=== PATIENT | male | born 1970 | race Caucasian/White ===

== ENCOUNTER 2020-02-01 15:10 | Outpatient (REF) | payer OTHER, SELFPAY | END 2020-02-01 15:11 | disposition home or self-care (01) | LOC: HO.LAB 15:10 | PROVIDERS: PCP Internal Medicine; Visit Provider Internal Medicine | DX: Z20.828 Contact with and (suspected) exposure to other viral communicable diseases (principal) | CPT/HCPCS: C9803; U0003 ==

== ENCOUNTER 2021-12-12 11:41 | Outpatient (REF) | payer SELFPAY ==
[2021-12-12 11:44] LABS: MANUAL DIFF FLAG NO
[2021-12-12 12:07] LABS: Basophils Absolute Auto 0.1 X10*3/uL (0.0-0.2); Basophils Percent Auto 0.8 % (0-2); Eosinophils Absolute Auto 0.4 X10*3/uL (0.0-0.4); Eosinophils Percent Auto 6.4 % (0-4); Hematocrit 51.2 % (42.0-52.0); Hemoglobin 16.4 g/dl (14.0-18.0); Imm Gran Abs Auto 0.02 X10*3/uL (0.00-0.03); Imm Gran Pct Auto 0.3 % (0.0-0.4); Lymphocytes Absolute Auto 2.1 X10*3/uL (1.2-4.9); Mean Corpuscular Hemoglobin 27.9 pg (27.0-33.0); Mean Corpuscular Volume 87.2 fL (80.0-98.0); Mean Platelet Volume 9.5 fL (9.4-12.4); Monocytes Absolute Auto 0.6 X10*3/uL (0.1-1.2); Monocytes Percent Auto 8.9 % (2-11); Neutrophils Absolute Auto 3.3 x10*3/uL (2.0-8.3); Neutrophils Percent Auto 51.6 % (45-73); Platelet Count 328 X10*3/uL (160-400); Red Blood Count 5.87 X10*6/uL (4.60-5.80); Red Cell Distribution Width 14.5 % (11.0-16.0); White Blood Count 6.4 X10*3/uL (4.8-10.8)
[2021-12-12 12:16] LABS: Appearance Urine Clear; Color Urine Yellow; Glucose Urine UA Negative (Negative); Leukocyte Esterase Urine Negative (Negative); Nitrite Urine Negative (Negative); PH 6.5 (5.0-9.0); Urine Blood Negative (Negative); Urine Ketones Negative (Negative); Urine Protein Negative (Neg-Trace)
[2021-12-12 12:19] LABS: Bacteria Urine None Seen (None Seen); Hyaline Casts Urine 0-2 /LPF (0-2); Squamous Epithelial Cell Urine 0-2 /HPF (0-2); WBC Urine 0-5 /HPF (0-5)
[2021-12-12 12:20] LABS: Alanine Aminotransferase 29 U/L (0-40); Albumin Level 4.3 g/dL (3.5-5.0); Alkaline Phosphatase 60 U/L (39-117); Anion Gap 15 (12-20); Aspartate Amino Transferase 19 U/L (5-37); Bilirubin Total 0.7 mg/dL (0.0-1.0); Blood Urea Nitrogen 19 mg/dL (9-16); Calcium 9.5 mg/dL (8.4-10.2); Carbon Dioxide 27 mmol/L (22-29); Chloride 104 mmol/L (96-108); Cholesterol 196 mg/dL; Estimated Glomerular Filt Rate > 60; Glucose Fasting 94 mg/dL (60-99); HDL Cholesterol 52 mg/dL; LDL Cholesterol Calculated 125 mg/dl; Potassium 4.5 mmol/L (3.3-5.1); Sodium 141 mmol/L (135-145); Total Protein 7.3 g/dL (6.5-8.0); Triglycerides 96 mg/dL
[2021-12-12 12:43] LABS: PSA,Total (Free>4and<10) 0.53 ng/mL (0.00-4.00)
== END 2021-12-12 11:42 | disposition home or self-care (01) ==
LOC: HO.LNP 11:41
PROVIDERS: Visit Provider Internal Medicine
DX: Z00.00 Encounter for general adult medical examination without abnormal findings (principal); I10 Essential (primary) hypertension; Z12.5 Encounter for screening for malignant neoplasm of prostate
CPT/HCPCS: 80053; 80061; 81001; 84153; 85025

== ENCOUNTER → 2022-02-09 13:25 | Outpatient (BNVA) | payer SELFPAY | PROVIDERS: PCP Internal Medicine; Visit Provider Physician Assistant Medical | DX: Z02.79 Encounter for issue of other medical certificate (principal) ==

== ENCOUNTER 2022-06-09 09:55 | Day surgery (SDC) | payer BC, SELFPAY ==
[2022-06-09 12:10] VITALS: BP 133/81; PULSE 81; RESP 16; TEMP 36.1; O2SAT 99; BMI 33.7
--- NOTE | 2022-06-09 13:22 | MHC.SHP ---
Pre-Procedural Eval Section A Date of Service: 06/09/22 The patient is an INPATIENT: No Changes since office visit: No Cold of Flu in the past 2 weeks, No New Medical Problems, No Changes in Medication and No Patient answered all questions The History & Physical has been completed within 30 days and I have reviewed it.: Yes Section B Chief Complaint: Personal history of colonic polyps/screening Allergies: Allergies Allergy/AdvReac Type Severity Reaction Status Date / Time opoids Allergy Severe nausea Uncoded 06/09/22 12:01 sulfa drugs Allergy Unknown Unknown Uncoded 06/09/22 12:01 Plan I have reviewed the history and physical and performed a pertinent physical examination on my patient. No changes have occurred unless specified. Time Spent With Patient Time: Total time managing care of this patient today ____ minutes.
[2022-06-09 14:05] VITALS: BP 89/36; PULSE 85; RESP 16; TEMP 36.2; O2SAT 98
--- NOTE | 2022-06-09 14:06 | PM.OP ---
Brief Operative Note Date of Service: 06/09/22 Pre-op diagnosis: screening Post-op diagnosis: same Procedure: colonoscopy Surgeon: Toño Morrison Anesthesia: MAC Was an Assistant Kitchen Manager used for this Procedure?: No Estimated blood loss (mL): 5 Pathology: other Condition: stable Disposition: PACU
--- NOTE | 2022-06-09 14:10 | HO.ANESPROP2 ---
[facility] Past Medical History Medical History (Updated 06/09/22 @ 12:24 by Юлия Avalos) Concussion with brief LOC Esophagitis GERD (gastroesophageal reflux disease) Hiatal hernia Hypertension Kidney stones Right bundle branch block S/P angiogram of extremity Schatzki's ring Family History Family history of problems with anesthesia: No Surgical History Surgical History (Updated 06/09/22 @ 12:09 by Юлия Avalos) H/O colonoscopy H/O endoscopy H/O knee surgery History of Problems with Anesthesia: No Social History Social History Patient Tobacco Use Status: Former Tobacco user Quit Date: 1997 Tobacco use type: Cigarette Smoked in Last 30 Days: No Use of substances other than those prescribed or required for medical reasons: No Are you DNR?: No Advance Directives: No Advance Directives Information Provided: Yes Meds Allergies Allergy/AdvReac Type Severity Reaction Status Date / Time opoids Allergy Severe nausea Uncoded 06/09/22 12:01 sulfa drugs Allergy Unknown Unknown Uncoded 06/09/22 12:01 Home Medications Medication Instructions Recorded Confirmed Last Taken Type omeprazole 1 cap PO DAILY 06/09/22 06/09/22 Unknown History valsartan 80 1 tab PO DAILY 06/09/22 06/09/22 06/07/22 History mg-hydrochlorothiazide 12.5 mg tablet Exam Exam Date and Time: June 09, 2022 1410 Height,Weight and Vital Signs: Height 6 ft Weight 112.763 kg Last Vital Signs Temp 97.0 F 06/09/22 12:10 Pulse 81 06/09/22 12:10 Resp 16 06/09/22 12:10 BP 133/81 06/09/22 12:10 Pulse Ox 99 06/09/22 12:10 O2 Del Method Room Air 06/09/22 12:10 Airway Mallampati Class: II TM Dist: >3cm Neck ROM: Full Heart: rr Lungs: cta Assessment and Plan Final Anesthetic Review Family History of Problems with Anesthesia: No History of Problems with Anesthesia: No NPO: Yes 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
[2022-06-09 14:21] VITALS: BP 116/71; PULSE 74; RESP 18; TEMP 36.1; O2SAT 98
--- NOTE | 2022-06-10 00:50 | OP_ITS ---
DATE OF SERVICE: 06/09/2022 SURGEON: Toño Morrison MD INDICATIONS: Colon cancer screening and prior history of adenomatous colon polyps as well as family history of colon cancer. PREOPERATIVE DIAGNOSIS: POSTOPERATIVE DIAGNOSIS: PROCEDURE PERFORMED: Colonoscopy to the cecum with biopsy. ESTIMATED BLOOD LOSS: COMPLICATIONS: ANESTHESIA: Monitored anesthesia care. ASSISTANTS: SPECIMENS: DESCRIPTION OF PROCEDURE: A history and physical were performed. The procedure was performed on 06/09/2022. The risks and benefits of the procedure were explained to the patient. Informed consent was obtained. The patient was placed in the left lateral decubitus position. A digital rectal exam was performed and was found to be normal. The Olympus pediatric video colonoscope was introduced into the rectum and advanced to the cecum without difficulty. The cecum was identified by transillumination, palpation, and identification of the ileocecal valve. Abdominal wall pressure was used to assist in advancement of the scope. Examination was performed. The scope was removed. He tolerated the procedure well and was returned to recovery area in stable condition. FINDINGS: The terminal ileum was not examined. The visualized colonic mucosa was normal. A total of 3 polyps were identified and removed with biopsy forceps. All measured less than 10 mm. These were located in the cecum at 60 cm and in the rectum. There was mild sigmoid diverticulosis. Retroflexed examination showed moderate-sized internal hemorrhoids. The quality of the prep was good. IMPRESSION: Colon polyps. RECOMMENDATION: Follow up the biopsy results. MD AILYN Iraheta/MARCELO / [phone]
== END 2022-06-09 14:51 | disposition home or self-care (01) ==
PROVIDERS: PCP Internal Medicine; Visit Provider Internal Medicine Gastroenterology
PROC: 0DJD8ZZ Inspection of Lower Intestinal Tract, Via Natural or Artificial Opening Endoscopic (ICD-10-PCS; CPT 45378; principal; 2022-06-09 12:40)
DX: Z12.11 Encounter for screening for malignant neoplasm of colon (principal); Z86.010 Personal history of colon polyps; Z80.0 Family history of malignant neoplasm of digestive organs; D12.0 Benign neoplasm of cecum; D12.4 Benign neoplasm of descending colon; K62.1 Rectal polyp; K57.30 Diverticulosis of large intestine without perforation or abscess without bleeding; K64.8 Other hemorrhoids; K21.9 Gastro-esophageal reflux disease without esophagitis; K22.2 Esophageal obstruction; I10 Essential (primary) hypertension; Z79.899 Other long term (current) drug therapy; Z87.442 Personal history of urinary calculi; Z87.891 Personal history of nicotine dependence
CPT/HCPCS: 45380; 88305

== ENCOUNTER 2022-12-24 11:13 | Outpatient (REF) | payer BC, SELFPAY ==
[2022-12-24 11:18] LABS: MANUAL DIFF FLAG NO
[2022-12-24 11:26] LABS: Appearance Urine Clear; Color Urine Yellow; Glucose Urine UA Negative (Negative); Leukocyte Esterase Urine Negative (Negative); Nitrite Urine Negative (Negative); PH 5.5 (5.0-9.0); Urine Blood Negative (Negative); Urine Ketones 15 mg/dL (Negative); Urine Protein Negative (Neg-Trace)
[2022-12-24 11:27] LABS: Basophils Percent Auto 0.9 % (0-2); Eosinophils Absolute Auto 0.3 X10*3/uL (0.0-0.4); Eosinophils Percent Auto 7.2 % (0-4); Hematocrit 47.1 % (42.0-52.0); Hemoglobin 15.5 g/dl (14.0-18.0); Imm Gran Abs Auto 0.01 X10*3/uL (0.00-0.03); Imm Gran Pct Auto 0.2 % (0.0-0.4); Lymphocytes Absolute Auto 1.7 X10*3/uL (1.2-4.9); Lymphocytes Percent Auto 36.5 % (20-40); Mean Corpuscular HGB Conc 32.9 g/dl (31.0-36.0); Mean Corpuscular Hemoglobin 28.5 pg (27.0-33.0); Mean Corpuscular Volume 86.7 fL (80.0-98.0); Mean Platelet Volume 9.7 fL (9.4-12.4); Monocytes Absolute Auto 0.4 X10*3/uL (0.1-1.2); Monocytes Percent Auto 9.4 % (2-11); Neutrophils Absolute Auto 2.1 x10*3/uL (2.0-8.3); Neutrophils Percent Auto 45.8 % (45-73); Platelet Count 338 X10*3/uL (160-400); Red Blood Count 5.43 X10*6/uL (4.60-5.80); Red Cell Distribution Width 13.9 % (11.0-16.0); White Blood Count 4.6 X10*3/uL (4.8-10.8)
[2022-12-24 11:31] LABS: Bacteria Urine None Seen (None Seen); Hyaline Casts Urine 0-2 /LPF (0-2); RBC Urine 0-2 /HPF (0-2); Squamous Epithelial Cell Urine 0-2 /HPF (0-2); WBC Urine 0-5 /HPF (0-5)
[2022-12-24 11:49] LABS: Alanine Aminotransferase 12 U/L (0-40); Albumin Level 4.1 g/dL (3.5-5.0); Alkaline Phosphatase 49 U/L (39-117); Anion Gap 13 (12-20); Aspartate Amino Transferase 16 U/L (5-37); Bilirubin Total 0.6 mg/dL (0.0-1.0); Blood Urea Nitrogen 13 mg/dL (9-16); Calcium 9.6 mg/dL (8.4-10.2); Carbon Dioxide 27 mmol/L (22-29); Chloride 102 mmol/L (96-108); Cholesterol 190 mg/dL (<200); Estimated Glomerular Filt Rate > 60; Glucose Fasting 88 mg/dL (60-99); HDL Cholesterol 50 mg/dL (>40); LDL Cholesterol Calculated 127 mg/dL (<100); Potassium 3.7 mmol/L (3.3-5.1); Sodium 138 mmol/L (135-145); Total Protein 7.2 g/dL (6.5-8.0); Triglycerides 65 mg/dL (<150)
[2022-12-24 12:07] LABS: PSA,Total (Free>4and<10) 0.67 ng/mL (0.00-4.00)
== END 2022-12-24 11:14 | disposition home or self-care (01) ==
LOC: HO.LNP 11:13
PROVIDERS: Visit Provider Internal Medicine
DX: Z00.00 Encounter for general adult medical examination without abnormal findings (principal); I10 Essential (primary) hypertension; Z12.5 Encounter for screening for malignant neoplasm of prostate
CPT/HCPCS: 80053; 80061; 81001; 84153; 85025

== ENCOUNTER 2024-01-03 11:23 | Outpatient (REF) | payer BC, SELFPAY ==
[2024-01-03 11:26] LABS: MANUAL DIFF FLAG NO
[2024-01-03 11:50] LABS: Appearance Urine Clear; Color Urine Yellow; Glucose Urine UA Negative (Negative); Leukocyte Esterase Urine Negative (Negative); Nitrite Urine Negative (Negative); Urine Blood Negative (Negative); Urine Ketones Negative (Negative); Urine Protein Negative (Neg-Trace)
[2024-01-03 11:51] LABS: Basophils Absolute Auto 0.1 X10*3/uL (0.0-0.2); Basophils Percent Auto 1.1 % (0-2); Eosinophils Absolute Auto 0.5 X10*3/uL (0.0-0.4); Eosinophils Percent Auto 8.1 % (0-4); Hematocrit 48.7 % (42.0-52.0); Hemoglobin 15.6 g/dl (14.0-18.0); Imm Gran Abs Auto 0.02 X10*3/uL (0.00-0.03); Imm Gran Pct Auto 0.3 % (0.0-0.4); Lymphocytes Absolute Auto 2.2 X10*3/uL (1.2-4.9); Lymphocytes Percent Auto 36.3 % (20-40); Mean Corpuscular Hemoglobin 28.2 pg (27.0-33.0); Mean Corpuscular Volume 87.9 fL (80.0-98.0); Mean Platelet Volume 9.7 fL (9.4-12.4); Monocytes Absolute Auto 0.5 X10*3/uL (0.1-1.2); Monocytes Percent Auto 8.6 % (2-11); Neutrophils Absolute Auto 2.8 x10*3/uL (2.0-8.3); Neutrophils Percent Auto 45.6 % (45-73); Platelet Count 329 X10*3/uL (160-400); Red Blood Count 5.54 X10*6/uL (4.60-5.80); Red Cell Distribution Width 14.1 % (11.0-16.0); White Blood Count 6.2 X10*3/uL (4.8-10.8)
[2024-01-03 11:55] LABS: Bacteria Urine None Seen (None Seen); Hyaline Casts Urine 0-2 /LPF (0-2); RBC Urine 0-2 /HPF (0-2); Squamous Epithelial Cell Urine 0-2 /HPF (0-2); WBC Urine 0-5 /HPF (0-5)
[2024-01-03 12:56] LABS: Alanine Aminotransferase 24 U/L (0-40); Albumin Level 4.1 g/dL (3.5-5.0); Alkaline Phosphatase 52 U/L (39-117); Anion Gap 12 (12-20); Aspartate Amino Transferase 21 U/L (5-37); Bilirubin Total 0.4 mg/dL (0.0-1.0); Blood Urea Nitrogen 13 mg/dL (9-16); Calcium 9.3 mg/dL (8.4-10.2); Carbon Dioxide 28 mmol/L (22-29); Chloride 107 mmol/L (96-108); Cholesterol 199 mg/dL (<200); Estimated Glomerular Filt Rate > 60; Glucose Fasting 91 mg/dL (60-99); HDL Cholesterol 64 mg/dL (>40); LDL Cholesterol Calculated 124 mg/dL (<100); Potassium 4.2 mmol/L (3.3-5.1); Sodium 143 mmol/L (135-145); Total Protein 7.1 g/dL (6.5-8.0); Triglycerides 59 mg/dL (<150)
== END 2024-01-03 11:24 | disposition home or self-care (01) ==
LOC: HO.LNP 11:23
PROVIDERS: Visit Provider Internal Medicine
DX: Z00.00 Encounter for general adult medical examination without abnormal findings (principal); I10 Essential (primary) hypertension
CPT/HCPCS: 80053; 80061; 81001; 85025

== ENCOUNTER 2024-01-10 12:05 | Outpatient (REF) | payer BC, SELFPAY ==
[2024-01-10 12:46] LABS: PSA,Total (Free>4and<10) 0.78 ng/mL (0.00-4.00)
== END 2024-01-10 12:06 | disposition home or self-care (01) ==
LOC: HO.LNP 12:05
PROVIDERS: Visit Provider Internal Medicine
DX: Z00.00 Encounter for general adult medical examination without abnormal findings (principal); I10 Essential (primary) hypertension; Z12.5 Encounter for screening for malignant neoplasm of prostate
CPT/HCPCS: 84153

== ENCOUNTER 2024-11-30 11:51 | Outpatient (REF) | payer BC, SELFPAY ==
[2024-11-30 11:56] LABS: Appearance Urine Clear; Glucose Urine UA Negative (Negative); PH 6.0 (5.0-9.0); Specific Gravity - Urine 1.025 (1.005-1.025); UMIC TRIGGER UACC YES
[2024-11-30 12:08] LABS: UACC Culture Trigger YES
--- OUTSIDE RECORDS SUMMARY | 2024-11-30 14:11 | XMS_ITS | Clinical Summary ---
Author Organization [facility] Address [address] [place] [address] Care Team Providers Care Outsole Molder Name Role Phone Unavailable Primary Care Provider Unavailabl e Social History Tobacco Use Types Packs/Day Years Used Date Smoking Tobacco: Never Assessed Sex and Gender Information Value Date Recorded Sex Assigned at Not on file Legal Sex Male 7:09 PM EDT Gender Identity Not on file Sexual Orientation Not on file Plan of Treatment Health Maintenance Due Date Last Done Comments Hepatitis C Screening 1970 DTaP/Tdap/Td (1 - Tdap) 06/07/1987 Hep B (1 of 3 - 19+ 3-dose series) 1988 Pneumococcal 50+ years (1 of 1 - PCV) 06/07/2019 Zoster (Shingrix) (1 of 2) 06/07/2019 COVID-19 Vaccine ( - 2023-2 5 season) 2024 Influenza (#1) 2024 HPV Vaccine (No Doses Required) Completed Hep A Aged Out No longer eligi ble based on patient's age to complete this topic Hib Aged Out No longer eligi ble based on patient's age to complete this topic Meningococcal ACWY Aged Out No longer eligible based on patient's age to complete this topic
--- OUTSIDE RECORDS SUMMARY | 2024-11-30 14:11 | XMS_ITS | Clinical Summary ---
Author Organization [facility] Address [address] [place] [phone] Phone Care Team Providers Care Drafter Castings Name Role Phone Juma Pryor MD Primary Care Provider Allergies Active Allergy Reactions Criticality Noted Date Comments Sulfa (Sulfonamide Antibiotics) Hives 03/16 Medications omeprazole magnesium (ACID FLAT SORTING MACHINE CLERK, OMEPRAZOLE,) 20 mg CpDR 08/13/2018 Active Social History Tobacco Use Types Packs/Day Years Used Date Smoking Tobacco: Never Assessed Education Answer Date Recorded Are you interested in more education? Not on rosio e 07/10/2022 Are you concerned about learning? Not on file 07/10/2022 No 07/10/2022 No 07/10/2022 Digital Access Answer Date Recorded No 08/08/2022 No 08/08/2022 No 08/08/2022 Reliable internet access at home? Not on file 08/08/2022 Device with a working camera? Not on file Sex and Gender Information Value Date Recorded Sex Assigned at Male 04/09/2019 3:35 PM EST Legal Sex Male 3:26 PM EST Gender Identity Male 04/09/2019 3:35 PM EST Sexual Orientation Straight 04/09/2019 3: 35 PM EST Last Filed Vital Signs Vital Sign Reading Time Taken Comments Blood Pressure 146/90 04/09/2019 4:01 PM EST Pulse 71 04/09/2019 4:01 PM EST Temperature 36.4 C (97.6 F) 04/09/2019 4:01 PM EST Respiratory Rate - - Oxygen Saturation 97% 04/09/2019 4:01 PM EST Inhaled Oxygen Concentration - - Weight 112 kg (247 lb) 04/09/2019 4:01 PM EST Height - - Body Mass Index - - Plan of Treatment Health Maintenance Due Date Last Done Comments Adult Td,Tdap Booster 1970 LIPID PANEL 1969 DEPRESSION SCREENING 1981 SMOKING Hx and SMOKELESS TOBACCO SCREENING 1982 HEPATITIS C SCREENING 06/07/1987 HIV ONE-TIME SCREENING (18-65 YEARS) 06/07/1987 COLOGUARD 2014 COLONOSCOPY 2014 COLORECTAL CANCER SCREENING 2014 FIT TEST 2014 FOBT 2014 SIGMOIDOSCOPY 2014 VIRTUAL COLONOSCOPY 2014 PNEUMOCOCCAL VACCINES (50+ years) (1 of 1 - PCV) 06/07/2019 ZOSTER VACCINES (1 of 2) 06/07/2019 INFLUENZA VACCINE (#1) 2024 9, 05/18/2017, 03/11/2016, Additional history exists COVID-19 VACCINE ( - 2024- season) 2024 06/23/2020 HEPATITIS A VACCINES Aged Out No long er eligible based on patient's age to complete this topic HIB VACCINES Aged Out No longer eligi ble based on patient's age to complete this topic MENINGOCOCCAL VACCINES (ACWY) Aged Out No longer eligible based on patient's age to complete this topic MENINGOCOCCAL VACCINES (B) Aged Out N o longer eligible based on patient's age to complete this topic Medical Devices Not on file Insurance [facility] EPO Leaf [facility] PPO EPO [facility] PPO EPO Leaf [facility] PPO EPO [facility] PPO EPO [place] [address] [place] [address] [address] [place] [address] PPO EPO [facility] PPO EPO Care Teams Drafter Castings Relationship Specialty Start Date End Date Juma Pryor MD [address] [place] [address] [place] [address] PCP - General Internal Medicine 04/09/19 Additional Source Comments The information contained in this document represents components of the legal health record. It is not the complete legal health record.[facility]
--- OUTSIDE RECORDS SUMMARY | 2024-11-30 14:11 | XMS_ITS ---
Author Name [facility] Organization Unknown Encounters Encounter Type Encounter Reason Primary Diagnosis Location Date Ambulatory [facility] 03/04/[address] [facility] 03/04/2024
== END 2024-11-30 11:52 | disposition home or self-care (01) ==
LOC: HO.LNP 11:51
PROVIDERS: Visit Provider Internal Medicine
DX: R35.89 Other polyuria (principal)
CPT/HCPCS: 81001; 87086

== ENCOUNTER 2025-01-09 07:12 | Outpatient (REF) | payer BC, SELFPAY ==
--- OUTSIDE RECORDS SUMMARY | 2024-11-23 11:39 | XMS_ITS ---
Author Organization Juma Pryor MD Address [address] [place] [phone] Care Team Providers Care Commanding Officer Traffic Division Name Role Phone Juma Pryor Primary Care Provider REASON FOR VISIT refill Medications Medication SIG (Take, Route, Fr equency, Duration) Notes Start Date End Date Status Gabapentin 300 MG 1 capsule Orally Thr ee times a day for 30 days Active Encounters Encounter Location Date Provider Diagnosis Juma Pryor MD [address] [facility] [address] [place] [phone] 11/23/2024 Juma Pryor Plan Of Treatment Medication Medication Name Sig Start Date Stop Date Notes Gabapentin 300 MG 1 capsule Orally Thr ee times a day for 30 days Next Appt Details Provider Name:Juma Betancur ier, 01/15/2025 09:30:00 AM, [facility], Suite [facility], [place], [place], [phone], Progress Notes * CANDE LOZANODOB: 0 (54 yo M)Acc No.[id number]:11/23/2024 Patient: Domenica CARRILLOCANDE HENDRICKSON :1970 A ge:54 Y S ex:Male Address: [address], [place], [address] * Refills Refill Gabapentin Capsule, 300 MG, Orally, 90 Capsule, 1 capsule, Three times a day, 30 days, Refills=1 * true * Date: Generated for Elgin brooks/Gaudencio/Nilton on: 07:16 AM EDT
--- OUTSIDE RECORDS SUMMARY | 2024-11-24 12:30 | XMS_ITS ---
Author Organization Juma Pryor MD Address [address] [place], [place] [phone] Care Team Providers Care Toddler Caregiver Name Role Phone Juma Pryor Primary Care Provider [phone] REASON FOR VISIT d/c 11-14-2024 for [facility] 4 broken ribs , was told d/c summary will be faxed Encounters Encounter Location Date Provider Diagnosis Juma Pryor MD 10 [facility] [address] [place], [place] [phone] 11/24/2024 Juma Pryor Plan Of Treatment Next Appt Details Provider Name:Juma Betancur ier, 01/15/2025 09:30:00 AM, [address] [facility], [address], [place], [place], [phone], Progress Notes * CANDE LOZANODOB: 0 (54 yo M)Acc No.[id number]:11/24/2024 Progress Notes Patient: CANDE OCHOA Provider: Kaylin Pryor MD :1970 A ge:54 Y S ex:Male Date:11/24/2024 Address: [address], [place], [id number] Subjective: * Chief Complaints: * 1 . d/c [facility]14-2024 for [place] [facility] broken ribs , was told d/c summary will be faxed. * Medical History: Objective: * Vitals: Assessment: Plan: * Treatment: * * The named appointment provid er may or may not be the originator of this progress note, and it is not deemed complete until electronically signed by the appointment provider. Sign off status: Pending * Provider: Kaylin Pryor MD Date: 0 11/24/2024 Generated for Elgin brooks/Gaudencio/Ieshaitting on: 07:17 AM EDT
--- OUTSIDE RECORDS SUMMARY | 2024-11-27 07:07 | XMS_ITS ---
Author Organization Juma Pryor MD Address [address] [place] [phone] Care Team Providers Care Maritime Officer Name Role Phone Juma Pryor Primary Care Provider REASON FOR VISIT ct sinuses Encounters Encounter Location Date Provider Diagnosis Juma Pryor MD 10 [facility] [address] [place] [phone] 11/27/2024 Juma Pryor Chronic sinusitis, unspecified J32.9 Assessments Encounter Date Diagnosis (ICD Code) Assessment Notes Treatment Notes Treatment Clinical Notes Section Notes 11/27/2024 Chronic sinusitis, unspecified (ICD-10 - J32.9) Plan Of Treatment Future Test Test Name Order Date CT sinus w con 01/05/2025 Next Appt Details Provider Name:Juma burgos, 01/15/2025 09:30:00 AM, 10 [facility], Suite [facility], [place], [place], [phone], Progress Notes * CANDE LOZANODOB: 0 (54 yo M)Acc No.[id number]:11/27/2024 Patient: Domenica CARRILLOCANDE HENDRICKSON :1970 A ge:54 Y S ex:Male Address: [address], [place], [address] Subjective: * Chief Complaints: * C t sinuses * Medical History: * Surgical History: * Hospitalization/Major Diagno stic Procedure: * Medications: Objective: * Vitals: * Physical Examination: Assessment: * Assessment: 1. C hronic sinusitis, unspecified - J32.9 Plan: * Treatment: * Procedure Codes: * true * Date: Generated for Elgin brooks/Gaudencio/eTtysonsmitting on: 07:15 AM EDT
--- OUTSIDE RECORDS SUMMARY | 2024-11-30 05:00 | XMS_ITS ---
Author Organization Juma Pryor MD Address [address] [place], [place] [phone] Care Team Providers Care Weft Straightener Name Role Phone Juma Pryor Primary Care Provider [phone] Allergies No Known Allergies Results Component Value Reference Range Notes UA ClnCatch+Micro w/rflx Cul t Reviewed date:11/30/2024 12:16:43 PM Interpretation: Performing Lab:[facility], [address] [place] [id number] Notes/Report: Urine, Clean Catch Color Urine Dark Yellow Appearance Urine Clear PH 6.0 5.0-9.0 Glucose Urine UA Negative Negative mg/dL Urine Blood Negative Negative Specific [place] - Urine 1.025 1.005-1.025 Urine Protein Trace [...] Location Date Provider Diagnosis Juma Pryor MD [address] [place] [address] Drive [address] [place], [place] [phone] 11/30/2024 Juma Pryor Rib fractures S22.39XA and [...] Follow Up: 4 Weeks, Reason: Provider Name:Juma Betancur ier, 01/15/2025 09:30:00 AM, [address] [facility], [address], [place], [place], [phone], Progress Notes * CANDE LOZANODOB: 0 (54 yo M)Acc No.[id number]:11/30/2024 Progress Notes Patient: CANDE OCHOA Provider: Kaylin Pryor MD :1970 A ge:54 Y S ex:Male Date:11/30/2024 [facility] Subjective: * Chief Complaints: * 3 month [...] hortness of breath with exertion. G astrointestinal: Denpascual D iarrhea. D enies N ausea. * [...] MD Date: 0 11/30/2024 Generated for Elgin brooks/Gaudencio/Briansmitting on: 1 07:15 AM EDT History and Physical Notes * HPI (History [...]
--- OUTSIDE RECORDS SUMMARY | 2024-12-05 07:11 | XMS_ITS ---
Author Organization Juma Pryor MD Address [address] [place] [phone] Care Team Providers Care Manager Of Allied Health Services Name Role Phone Jmua Pryor Primary Care Provider REASON FOR VISIT new orders Encounters Encounter Location Date Provider Diagnosis Juma Pryor MD [address] [place] [phone] 12/05/2024 Juma Pryor Rib fractures S22.39XA Assessments Encounter Date Diagnosis (ICD Code) Assessment Notes Treatment Notes Treatment Clinical Notes Section Notes 12/05/2024 Rib fractures (ICD-10 - S22.39XA) Plan Of Treatment Pending Test Test Name Order Date XR ribs RT 2V 12/05/2024 Next Appt Details Provider Name:Juma Betancur ier, 01/15/2025 09:30:00 AM, [address] [facility], Suite [facility], [place], [place], [phone], Progress Notes * CANDE LOZANODOB: 0 (54 yo M)Acc No.[id number]:12/05/2024 Patient: Domenica CARRILLOCANDE HENDRICKSON :1970 A ge:54 Y S ex:Male Address: [address], [place], [address] Subjective: * Chief Complaints: * N ew orders * Medical History: * Surgical History: * Hospitalization/Major Diagno stic Procedure: * Medications: Objective: * Vitals: * Physical Examination: Assessment: * Assessment: 1. R ib fractures - S22.39XA Plan: * Treatment: * Procedure Codes: * true * Date: Generated for Elgin brooks/Gaudencio/eTtysonsmitting on: 07:16 AM EDT
--- OUTSIDE RECORDS SUMMARY | 2024-12-07 06:34 | XMS_ITS ---
Author Organization Juma Pryor MD Address [address] [place] [phone] Care Team Providers Care Leather Lacer Name Role Phone Juma Pryor Primary Care Provider REASON FOR VISIT refill oxycodone Medications Medication SIG (Take, Route, Frequency, Duration) Notes Start Date End Date Status oxyCODONE HCl 5 MG 1 tablet as needed Orally every 6 hrs for 15 days Partial Fill upon Patient Request 12/07/2024 Active Encounters Encounter Location Date Provider Diagnosis Juma Pryor MD [address] [place] [phone] 12/07/2024 Juma Pryor Rib fractures S22.39XA Assessments [...] Request Next Appt Details Provider Name:Juma burgos, 01/15/2025 09:30:00 AM, [address], [address], [place], [place], [phone], Progress Notes * CANDE LOZANODOB: 0 (54 yo M)Acc No.[id number]:12/07/2024 Patient: CANDE OCHOA :1970 A ge:54 Y S ex:Male [facility] [place], [address] * Refills Refill oxyCODONE HCl Tablet, 5 MG, Orally, 60 Tablet, 1 tablet as needed, every 6 hrs, 15 days, Refills=0 * true * Date: Generated for Elgin brooks/Gaudencio/Ieshaitting on: 1 07:17 AM EDT
--- OUTSIDE RECORDS SUMMARY | 2024-12-29 08:06 | XMS_ITS ---
Author Organization Juma Pryor MD Address [address] [place] [phone] Care Team Providers Care Body Shop Mechanic Name Role Phone Juma Pryor Primary Care Provider [phone] sinuses Encounters Encounter Location Date Provider Diagnosis Juma Pryor MD [address] [facility] [address] [place] [phone] 12/29/2024 Juma Pryor Plan Of Treatment Next Appt Details Provider Name:Juma Betancur ier, 01/15/2025 09:30:00 AM, [address] [place] [address], Suite [facility], [place], [place], [phone], Progress Notes * CANDE LOZANODOB: 0 (54 yo M)Acc No.[id number]:12/29/2024 Patient: CANDE OCHOA :1970 A ge:54 Y S ex:Male Address:[address] [place], [address] * true * Date: Generated for Printi ng/Faxing/eTransmitting on: 1 07:16 AM EDT
--- OUTSIDE RECORDS SUMMARY | 2025-01-05 06:15 | XMS_ITS ---
Author Organization Juma Pryor MD Address [address] [place], [place] [phone] Care Team Providers Care Wildlife Control Operator Name Role Phone Juma Pryor Primary Care Provider [phone] Allergies No Known Allergies Reason For Referral Reason abscess Axilla Diagnosis 1 Abscess (L02.91) Referral Organization Juma Pryor MD Referring Provider First Name Juma Referring Provider Last Name Konstantin Referring Provider Speciality Internal M edicine Referred Provider FIGUEROA JAIMES Referred Provider Specialty Infectious D isease General Notes Kate Hernandez 1 11:32:10 AM >ins referral faxed Referral Priority Routine REASON FOR VISIT 1 month, insurance denied [...] Location Date Provider Diagnosis Juma Pryor MD [address] [place] [phone] 01/05/2025 Juma Pryor Rotator cuff dysfunction, right M67.911 ; Rib fractures S22.39XA and Abscess L02.91 Assessments Encounter Date Diagnosis (ICD Code) Assessment Notes Treatment Notes Treatment Clinical Notes Section Notes 01/05/2025 Rotator cuff dysfunction, right (ICD-10 - M67.911) MRI order faxed to [facility] 01/05/2025 Rib fractures (ICD-10 - S22.39XA) [facility] 01/05/2025 Abscess (ICD-10 - L02.91) referral to dr jaimes for recurring abscess Plan Of Treatment Medication Medication Name Sig Start Date Stop Date Notes Cephalexin 500 MG 1 capsule Orally to ry 6 hrs for 10 day(s) 01/05/2025 Treatment Notes Assessment Notes Rotator cuff dysfunction, right MRI orde r faxed to [facility] fractures [facility] Abscess referral to dr deb hendrickson for recurring abscess Pending Test Test Name Order Date MRI SHOULDER RT W&WO CONTRAST 01/05/2025 Referrals Referral Date Details 01/05/2025 01/05/2025, abscess Axilla, FIGUEROA JAIMES Next Appt Details Follow Up: 4 Weeks, Reason: Provider Name:Juma Betancur ier, 01/15/2025 09:30:00 AM, [address] [facility], [address], [place], [place], [phone], Progress Notes * CANDE LOZANODOB: 0 (54 yo M)Acc No.[id number]:01/05/2025 Progress Notes Patient: CANDE OCHOA Provider: Kaylin Pryor MD :1970 A ge:54 Y S ex:Male Date:01/05/2025 Address:[address] [place] [address] , [id number] Subjective: * Chief Complaints: * 1 . 1 month. 2. [address] denied [address] sinuses. * HPI: S ymptom(s): patient is a 54yo male here for one month follow up visit can't lift arm above shoulder. * ROS: G eneral/Constitutional: Denies C hills. D enies F atigue. D enies F ever. D enies H eadache. E NT: Denies S ore throat. R espiratory: Denies C ough. D enies S hortness of breath at rest. D enies S hortness of breath with exertion. G astrointestinal: Denies D iarrhea. D enies N ausea. M usculoskeletal: Patient complaining of s till with pain with coughing. seeing trauma surgeon. going back to them in few weeks. * Medical History: K idney stones frequently. 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 * Medications: T aking Ibuprofen 200 MG Tablet 1 tablet with food or milk as needed Orally Three times a day , Taking Acetaminophen 500 MG Capsule 1 capsule as needed Orally every 6 hrs , Taking Omeprazole 20 MG Capsule Delayed Release 1 capsule Orally Once a day , Taking PARoxetine HCl 20 MG Tablet 1 tablet in the morning Orally Once a day , Taking Gabapentin 300 MG Capsule 1 capsule Orally Three times a day , Taking Lidocaine 5 % Patch 1 patch remove after 12 hours Externally Once a day , Not-Taking/PRN oxyCODONE HCl 5 MG Tablet 1 tablet as needed Orally every 6 hrs , Notes to Pharmacist: Partial Fill upon Patient Request, Not-Taking/PRN Methocarbamol 500 MG Tablet 1 tab Orally Four times a day , Not-Taking/PRN Valsartan-hydroCHLOROthiazide 80-12.5 MG Tablet 1 tablet Orally Once a day , Not-Taking/PRN Indomethacin 50 MG Capsule 1 capsule with food or milk Orally 3 times a day , Not-Taking/PRN Doxycycline Hyclate 100 MG Capsule 1 capsule Orally Once a day , Not-Taking/PRN Benadryl Allergy 25 MG Tablet 1 tablet at bedtime as needed Orally Once a day , Not-Taking/PRN Tylenol 325 MG Tablet 2 tablet as needed Orally every 4 hrs , Discontinued Senna 8.6 MG Tablet 2 tablets at bedtime as needed Orally Once a day , Discontinued Docusate Sodium 100 MG Capsule 1 capsule as needed Orally Once a day , Medication List reviewed and reconciled with the patient * Allergies: N .K.D.A. Objective: * Vitals: H t: 70, Wt: [...] - S22.39XA 3 . A bscess - L02. Plan: * Treatment: 2. R ib fractures Notes: [facility] 3. A bscess Start Cephalexin Capsule, 500 MG, 1 capsule, Orally, every 6 hrs, 10 day(s), 40. Notes: referral to dr jaimes for recurring abscess ? Referral To:FIGUEROA JAIMES Infectious Disease Reason:abscess Axilla * Follow Up: 4 Weeks * * The named appointment provid er may or may not be the originator of this progress note, and it is not deemed complete until electronically signed by the appointment provider. Sign off status: Pending * Provider: Kaylin Pryor MD Date: Generated for Elgin brooks/Gaudencio/Ieshaitting on: 07:16 AM EDT History and Physical Notes * [...]
--- OUTSIDE RECORDS SUMMARY | 2025-01-08 04:48 | XMS_ITS ---
Author Organization Juma Pryor MD Address [address] [place] [phone] Care Team Providers Care Tank Erector Name Role Phone Juma Pryor Primary Care Provider REASON FOR VISIT NEW MRI ORDER Encounters Encounter Location Date Provider Diagnosis Juma Pryor MD [address] [facility] [address] [facility] [address] [place] [phone] 01/08/2025 Juma Pryor Rotator cuff dysfunction, right M67.911 Assessments Encounter Date Diagnosis (ICD Code) Assessment Notes Treatment Notes Treatment Clinical Notes Section Notes 01/08/2025 Rotator cuff dysfunction, right (ICD-10 - M67.911) Plan Of Treatment Pending Test Test Name Order Date MRI SHOULDER RT NO CONTRAST 01/08/2025 Next Appt Details Provider Name:Juma Betancur ier, 01/15/2025 09:30:00 AM, [address] [facility], [address] [facility], [place], [place], [phone], Progress Notes * CADNE LOZANODOB: 0 (54 yo M)Acc No.[id number]:01/08/2025 Patient: Domenica CARRILLOEN, CANDE :1970 A ge:54 Y S ex:Male Address: [address], [place], [address] Subjective: * Chief Complaints: * N EW [...]
--- NOTE | ~2025-01-09 | FL_ITS ---
EXAMINATION: XR BARIUM SWALLOW CLINICAL INFORMATION: Dysphagia COMPARISON: None available. TECHNIQUE: Routine upright barium swallow with thick barium, barium coated saltine crackers, barium tablet and thin barium in prone lying position was performed. FINDINGS: Following oral administration of thick barium in upright view and different positions there is normal propagation of bolus from the oral cavity through the pharynx, esophagus into stomach without obstruction narrowing. A prominent cricoesophageal sphincter is noted without obstruction. No barium retention seen in the valleculae or piriform sinuses. No laryngeal penetration or aspiration. On oral administration of saltine crackers with barium paste there is normal oral mastication and propagation of bolus from the oral cavity through the pharynx, esophagus into stomach. On oral administration of barium tablet there is spontaneous passage of tablet from the oral cavity, pharynx, esophagus into stomach. No obstruction seen. On oral administration of thin barium in prone lying position there is good distention of esophagus without intraluminal filling defect. No extrinsic compression seen. There is a small to moderate size hiatal hernia with mild gastroesophageal reflux. FLUOROSCOPY TIME: 2 minute 51 seconds DOSE AREA PRODUCT: 2910 uGy-m2 (microgray-meter squared) FL/FL barium swallow IMPRESSION: Small to moderate size hiatal hernia with mild gastroesophageal reflux. Prominent cricoesophageal sphincter but no obstruction seen.. Electronically signed by: Aris Stallings MD 01/09/2025 02:06 PM EDT
--- OUTSIDE RECORDS SUMMARY | 2025-01-09 03:00 | XMS_ITS ---
Author Organization Juma Pryor MD Address [address] [place] [phone] Care Team Providers Care Banquet Server On Call Name Role Phone Juma Pryor Primary Care Provider [phone] REASON FOR VISIT yearly fasting labs Encounters Encounter Location Date Provider Diagnosis Juma Pryor MD [address] [place] [phone] 01/09/2025 Juma Pryor Blood tests for routine general physical examination Z00.00 and Essential hypertension I10 Assessments Encounter Date Diagnosis (ICD Code) Assessment Notes Treatment Notes Treatment Clinical Notes Section Notes 01/09/2025 Blood tests for routine general physical examination (ICD-10 - Z00.00) 01/09/2025 Essential hypertension (ICD-10 - I10) Plan Of Treatment Pending Test Test Name Order Date Complete Blood Count Auto Diff Comprehensive [place]. Panel Fast Lipid Panel 01/09/2025 PSA,Total (Free>4and<10) 01/09/2025 UA ClnCatch+Micro w/rflx Cult 01/09/2025 Next Appt Details Provider Name:Juma Betancur ier, 01/15/2025 09:30:00 AM, [address] [place] [address], [address], [place], [place], [phone], Progress Notes * CANDE LOZANODOB: 0 (54 yo M)Acc No.[id number]:01/09/2025 Progress Note Patient: CANDE OCHOA Provider: Kaylin Pryor MD :1970 A ge:54 Y S ex:Male Date:01/09/2025 Address: [address], [id number] Subjective: * Chief Complaints: * 1 . Yearly fasting labs. * Medical History: Objective: * Vitals: Assessment: * Assessment: 1. B lood tests for routine general physical examination - Z00.00 (Primary) 2 .?Essential hypertension - I10 Plan: * Treatment: 2. E ssential hypertension L AB: Complete Blood Count Auto Diff L AB: Comprehensive [place]. Panel Fast L AB: Lipid Panel L AB: PSA,Total (Free>4and<10) L AB: UA ClnCatch+Micro w/rflx Cult * Procedure Codes: 3 6415 VENIPUNCT, ROUTINE* * * The named appointment provid er may or may not be the originator of this progress note, and it is not deemed complete until electronically signed by the appointment provider. Sign off status: Pending * Provider: Kaylin Pryor MD Date: Generated for Elgin brooks/Gaudencio/eTtysonsmitting on: 07:15 AM EDT
--- OUTSIDE RECORDS SUMMARY | 2025-01-09 07:15 | XMS_ITS | Patient Health Record ---
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 Name Role Phone Juma Pryor Primary Care Provider Allergies No Known Allergies Results Component Value Reference Range Notes Occult Blood, Stool, Guaiac Reviewed date:01/10/2024 10:13:17 AM Interpretation:Negative Performing Lab: Notes/Report: Negative Occult Blood, Stool, Guaiac Neg PSA,Total (Free>4and<10) Reviewed date:01/10/2024 12:51:06 PM Interpretation: Performing Lab:[facility], [address] [place] [phone] Notes/Report: PSA,Total (Free>4and<10) 0.78 0.00-4.00 ng/mL A Free PSA was not [...] Reed Alinity i Chemiluminescent Microparticle Immunoassay (CMIA) UA ClnCatch+Micro w/rflx Cul t Reviewed date:11/30/2024 12:16:43 PM Interpretation: Performing Lab:[facility], [address] [place] [phone] Notes/Report: Urine, Clean Catch Color Urine Dark Yellow Appearance Urine Clear PH 6.0 5.0-9.0 Glucose Urine UA Negative Negative mg/dL Urine Blood Negative Negative Specific Otis - Urine 1.025 1.005-1.025 Urine Protein Trace Neg-Trace mg/dL Urine Ketones Trace Negative mg/dL Nitrite Urine Positive Negative Leukocyte Esterase Urine Negative Negative RBC Urine 0-2 0-2 /HPF WBC Urine 0-5 0-5 /HPF Squamous Epithelial Cell Urine 0-2 0-2 /HPF Bacteria Urine None Seen None Seen Hyaline Casts Urine 0-2 0-2 /LPF Urine Culture Reviewed date:12/01/2024 10:06:31 AM Interpretation: Performing Lab:[facility], [address] [place] [phone] Notes/Report: Urine Culture No growth. Reason For Referral Reason Esophageal stricture Diagnosis 1 Esophageal stricture (K22.2) Referral Organization Juma Pryor MD Referring Provider First Name Juma Referring Provider Last Name Konstantin Referring Provider Speciality Internal edicine Referred Provider Oliver Monique Referred Provider Specialty Gastroentero logy General Notes Kate Hernandez 0 08/28/2024 10:40:42 AM > referral info favenkatedMary Annette 09/22/2024 01:12:51 PM >was told patient is aware of appt Referral Priority Routine Referral Appointment Date 12/05/2024 Reason Fractures ribs ple ase eval and treat Diagnosis 1 Rib fractures (S22.3 9XA) Referral Organization Juma Pryor MD Referring Provider First Name Juma Referring Provider Last Name Konstantin Referring Provider Speciality Internal M edicine Referred Provider [facility] Tra[facility] Outpatient Office Referred Provider Specialty Unknown General Notes Kate Hernandez 0 11/17/2024 01:06:03 PM >referral info faxed Referral Priority Routine Referral Appointment Date 12/08/2024 Reason abscess Axilla Diagnosis 1 Abscess (L02.91) Referral Organization Juma Pryor MD Referring Provider First Name Juma Referring Provider Last Name Konstantin Referring Provider Speciality Internal M edicine Referred Provider FIGUEROA JAIMES Referred Provider Specialty Infectious D isease General Notes Kate Hernandez 1 11:32:10 AM >ins referral faxed Referral Priority Routine Medications Medication SIG (Take, Route, Frequency, Duration) Notes Start Date End Date Status Gabapentin 300 MG 1 capsule Orally Three times a day for 30 days Active PARoxetine HCl 20 MG 1 tablet in the morning Orally Once a day for 30 days 05/29/2024 Active Omeprazole 20 MG 1 capsule Orally Once a day for 30 days Active Acetaminophen 500 MG 1 capsule as needed Orally every 6 hrs Active Tylenol 325 MG 2 tablet as needed Orally every 4 hrs Not-Taking Ibuprofen 200 MG 1 tablet with food or milk as needed Orally Three times a day Active Benadryl Allergy 25 MG [...] tablet Orally Once a day 03/16/2024 Not-Taking Methocarbamol 500 MG 1 tab [...] a day for 30 days 11/30/2024 Active Immunizations Vaccine Route Administration Date Status Comme nts Fluarix Quadrivalent Unknown 03/11/2016 Administered [facility] Fluarix Quadrivalent IM Intramuscular 05/18/2017 Administered Fluarix Quadrivalent IM Intramuscular 12/13/2018 Administered pt was given th e vaccine while inpatient at [facility]. Fluarix Quadrivalent IM Intramuscular 12/12/2021 Administered SARS-COV-2 Pfizer Unknown 06/23/2020 Administered SARS-COV-2 Pfizer Unknown 07/15/2020 Administered SARS-COV-2 Pfizer Unknown 03/14/2021 Administered Fluarix Quadrivalent IM Intramuscular 12/24/2022 Administered Fluarix Quadrivalent - 150 IM Intramuscular 01/03/2024 Administered Social History Tobacco Use: Social History Observation Description Date Details (start date - stop date) Former Smoker NA - NA Tobacco Use/Smoking Question Answer Notes Patient is a former smoker How long has it been since y ou last smoked? > 10 years Additional Findings: Tobacco Non-User Fo rmer smoker, currently using no form of tobacco Alcohol Screen Question Answer Notes Did you have a drink contain ing alcohol in the past year? Yes How often did you have a dri nk containing alcohol in the past year? Monthly or less (1 point) How many drinks did you have on a typical day when you were drinking in the past year? 1 or 2 drinks (0 point) How often did you have 6 or more drinks on one occasion in the past year? Never (0 point) Points 1 Interpretation Negative Problems Problem Type SNOMED Code ICD Code Onset Dates Problem Status W/U Status Risk Notes Problem 379758190 Reflux esophagit is (K21.00) Active confirmed Problem Gout attack (842901582) Gout attack (M10.9) Active confirmed Problem Atherosclerosis of abdominal aorta (496427051) Atherosclerosis of abdominal aorta (I70.0) Active confirmed Problem Chronic sinusitis (92454795) Chronic sinusitis, unspecified (J32.9) Active confirmed Problem Kidney stone (70138136) Kidney stone (N20.0) Active confirmed Problem 90366210 Essential hypertension (I10) Active confirmed Problem 28129566 RBBB (I45.10) Active confirmed Problem 11760904 Hiatal hernia (K44.9) Active confirmed Problem 069899088 History of kidne y stones (Z87.442) Active confirmed Problem 772236820 Family history o f colon cancer (Z80.0) Active confirmed Problem 99017908 Dysthymia (F34.1) Active confirmed Problem Esophageal stricture (37334124) Esophageal stricture (K22.2) Active confirmed Problem 015309802 Polyp of descending colon, unspecified type (D12.4) Active confirmed Problem Computed tomography result abnormal (807901158) Abnormal CAT scan (R93.89) Active confirmed Problem 248148559 Abnormal compute d tomography angiography (CTA) (R93.89) Active confirmed Vital Signs Blood pressure diastolic 84 mm Hg 01/05/2025 adele ght is up 10 pounds since 11-30-24 Height 71 in 01/05/2025 weight is up 10 pounds since 11-30-24 Blood pressure systolic 112 mm Hg 01/05/2025 weig ht is up 10 pounds since 11-30-24 Weight 237 lbs 01/05/2025 weight is up 10 pounds since 11-30-24 BMI 33.05 kg/m2 01/05/2025 weight is up 10 pounds since 11-30-24 Encounters Encounter Location Date Provider Diagnosis Juma Pryor MD [address] [place] [id number] 01/05/2025 Juma Pryor Rotator cuff dysfunction, right M67.911 ; Rib fractures S22.39XA and Abscess L02.91 Juma Pryor MD [address] [place] [address] Drive [address] [place] [address] [id number] 01/09/2025 Juma Pryor Blood tests for rout ine general physical examination Z00.00 and Essential hypertension I10 Juma Pryor MD [address] [place] [address] [id number] 01/10/2024 Juma Pryor Essential hypertensi on I10 ; Annual physical exam Z00.00 ; Polyp of descending colon, unspecified type D12.4 ; Family history of colon cancer Z80.0 ; Dysthymia F34.1 ; Reflux esophagitis K21.00 ; Colon cancer screening Z12.11 and Depression screening Z13.31 Juma Pryor MD [address] [place] [address] [id number] 02/28/2024 Juma Pryor Essential hypertensi on I10 Juma Pryor MD [address] [place] [address] [id number] 03/16/2024 Juma Pryor Acute cellulitis L03 .90 and Essential hypertension I10 Juma Pryor MD [address] [place] [address] [id number] 05/29/2024 Juma Pryor Kidney stone N20.0 ; Essential hypertension I10 and Dysthymia F34.1 Juma Pryor MD [address] [place] [address] [id number] 07/17/2024 Juma Pryor Gout attack M10.9 Juma Pryor MD [address] [place] [address] [id number] 08/28/2024 Juma Pryor Esophageal stricture K22.2 and Dysthymia F34.1 Juma Pryor MD [address] [place] [address] [id number] 11/17/2024 Juma Pryor Atherosclerosis of abdominal aorta I70.0 ; Rib fractures S22.39XA and Abnormal CAT scan R93.89 Juma Pryor MD [address] [place] [address] [id number] 11/30/2024 Juma Pryor Rib fractures S22.39 XA and Polyuria R35.89 Juma Pryor MD [address] [place] [address] [id number] 04/04/2024 Juma Pryor Essential hypertensi on I10 Juma Pryor MD [address] [place] [address] [id number] 09/28/2024 Juma Pryor MD [address] [place] [address] [id number] 11/16/2024 Juma Pryor MD [address] [place] [address] [id number] 11/16/2024 Juma Pryor MD [address] [place] [address] [id number] 11/23/2024 Juma Pryor MD [address] [place] [address] [id number] 11/27/2024 Juma Pryor Chronic sinusitis, unspecified J32.9 Juma Pryor MD [address] [place] [address] [id number] 12/05/2024 Juma Pryor Rib fractures S22.39 XA Juma Pryor MD [address] [place] [address] [id number] 12/07/2024 Juma Pryor Rib fractures S22.39 XA Juma Pryor MD [address] [place] [address] [id number] 12/29/2024 Juma Pryor MD [address] [place], [place] [id number] 01/08/2025 Juma Pryor Rotator cuff dysfunction, right M67.911 Assessments Encounter Date Diagnosis (ICD Code) Assessment Notes Treatment Notes Treatment Clinical Notes Section Notes 01/05/2025 Rotator cuff dysfunction, right (ICD-10 - M67.911) MRI order faxed to [facility] 01/05/2025 Rib fractures (ICD-10 - S22.39XA) [facility] 01/09/2025 Blood tests for routine general physical examination (ICD-10 - Z00.00) 01/10/2024 Essential hypertension (ICD-10 - I10) restart valsartan 80/12.5, patient verbalized understanding of medication and directions for use 01/10/2024 Annual physical exam (ICD-10 - Z00.00) labs reviewed and discussed with patient 02/28/2024 Essential hypertension (ICD-10 - I10) is losing job this week and just had a cup of coffee,will continue current regiment and will continue to monitor 03/16/2024 Acute cellulitis (ICD-10 - L03.90) 05/29/2024 Kidney stone (ICD-10 - N20.0) has passed 07/17/2024 Gout attack (ICD-10 - M10.9) patient verbalized understanding of medication and directions for use 08/28/2024 Esophageal stricture (ICD-10 - K22.2) needs appt with dr monique 11/17/2024 Atherosclerosis of abdominal aorta (ICD-10 - I70.0) twila start on statin in future 11/17/2024 Rib fractures (ICD-10 - S22.39XA) refer to trauma center at [facility]/ need er visit from [facility]/ request for records will be sent 11/30/2024 Rib fractures (ICD-10 - S22.39XA) is going to trauma doctor next week/ x-rays orders given to patient, pending diagnostic studies Total time spent on the date of the encounter is 35 minutes including both face to face time spent and time spent reviewing documentation, pertinent lab data, studies and counseling the patient. 11/30/2024 Polyuria (ICD-10 - R35.89) lab pending 04/04/2024 Essential hypertension (ICD-10 - I10) 11/27/2024 Chronic sinusitis, unspecified (ICD-10 - J32.9) 12/05/2024 Rib fractures (ICD-10 - S22.39XA) 12/07/2024 Rib fractures (ICD-10 - S22.39XA) 01/08/2025 Rotator cuff dysfunction, right (ICD-10 - M67.911) 01/05/2025 Abscess (ICD-10 - L02.91) referral to dr jaimes for recurring abscess 01/09/2025 Essential hypertension (ICD-10 - I10) 01/10/2024 Polyp of descending colon, unspecified type (ICD-10 - D12.4) needs colonoscopy in 4 years 03/16/2024 Essential hypertension (ICD-10 - I10) 05/29/2024 Essential hypertension (ICD-10 - I10) doing well, will continue current regiment 08/28/2024 Dysthymia (ICD-10 - F34.1) doing great on meds 11/17/2024 Abnormal CAT scan (ICD-10 - R93.89) repeat sinus ct in 6 weeks order faxed to [facility] 01/10/2024 Family history of colon cancer (ICD-10 - Z80.0) 05/29/2024 Dysthymia (ICD-10 - F34.1) not doing well. 01/10/2024 Dysthymia (ICD-10 - F34.1) doing well 01/10/2024 Reflux esophagitis (ICD-10 - K21.00) stable, will cntinue current regiment 01/10/2024 Colon cancer screening (ICD-10 - Z12.11) guaiac negative 01/10/2024 Depression screening (ICD-10 - Z13.31) negative screen Plan Of Treatment Pending Test Test Name Order Date Electrocardiogram (EKG) 2018 CT SINUS WITH CONTRAST 11/17/2024 MRI SHOULDER RT NO CONTRAST 01/08/2025 MRI SHOULDER RT W&WO CONTRAST 01/05/2025 XR CHEST 2 VIEW PA & LAT 11/30/2024 XR CHEST 2 VIEW PA & LAT 02/25/2018 Complete Blood Count Auto Diff Comprehensive [place]. Panel Fast Lipid Panel 01/09/2025 PSA,Total (Free>4and<10) 01/09/2025 XR ribs RT min 3V w CXR1V 11/30/2024 XR ribs RT 2V 12/05/2024 UA ClnCatch+Micro w/rflx Cult 01/09/2025 Future Test Test Name Order Date CT sinus w con 01/05/2025 Next Appt Details Provider Name:Juma Bryan Gypsy ier, 01/15/2025 09:30:00 AM, [address], [address], [place], [place], [id number], Insurance Providers Payer Name Payer Address Payer Phone Subscriber Number Group Number Insured Name Patient Relationship to Insured Coverage Start Date Coverage End Date [employer] [address] [place], [place] [phone] [id number] CANDE LOZANO Self - patient is the insured Medical (General) History Medical History History ICD Code kidney stones frequently. last one 2014 colonoscopy 08/31/2016 due in 3 years with adenoma and esophageal ulcer 2022 with tubular adenomas should repeat in 5 years for the abnomal angio went t [facility] and had angiogram and had infumdubulm
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
--- OUTSIDE RECORDS SUMMARY | 2025-01-09 07:17 | XMS_ITS | Data Portability ---
Author Organization [facility] [employer] [facility] [facility] [facility] [address] Address [address] [place] [address] Assessment No assessment recorded. Plan of Treatment Reminders Order Date Submit Date Provider Last Modified By Organization Details Last Modified Time Details Appointments None record ed. Lab None record ed. Referral None record ed. Procedures None record ed. Surgeries None record ed. Imaging None record ed. Medication Orders None record ed. Patient TargetsNo targets recorded. Patient InstructionsNo instructions recorded. Reason for Referral None Reported. Procedures Surgical History Date Name Laterality Status Provider Name and Address Organization Details Recorded Time OC-UDS Send Out Template DOT completed Alessandra Carias [facility] [employer] 03/04/2024 13:24:14 Imaging Results None recorded. Procedure Notes None recorded. Medical Equipment None Reported. Medications Name Sig Start Date Stop Date Status Note LastModified by Organization Details LastModified Time amoxicillin 500 mg capsule TAKE 1 CAPSULE BY MOUTH THREE TIMES DAILY UNTIL FINISHED active Not Available Not Available No t Available paroxetine 10 mg tablet TAKE 1 TABLET BY MOUTH ONCE DAILY IN THE MORNING active Not Available Not Available No t Available ibuprofen 800 mg tablet TAKE 1 TABLET BY MOUTH 4 TIMES DAILY NEEDED FOR PAIN WITH food active Not Available Not Available No t Available valsartan 80 mg-hydrochlor othiazide 12.5 mg tablet TAKE 1 TABLET BY MOUTH ONCE DAILY active Not Available Not Available No t Available clobetasol 0.05 % topical ointment APPLY TOPICALLY TO TRUNK TWICE DAILY FOR UP TO 2 WEEKS. DO NOT USE ON NECK FOR MORE THAN 5 DAYS active Not Available Not Available No t Available doxycycline hyclate 100 mg tablet TAKE 1 TABLET BY MOUTH TWICE DAILY FOR 10 DAYS active Not Available Not Available No t Available diazepam 5 mg tablet take 1-2 tabs by mouth 1 hr prior to procedure active Not Available Not Available No t Available Vitals None Recorded Social History None recorded. Functional Status None recorded. Mental Status None recorded. Family History Nothing Reported. Medical History No medical history recorded. Past Encounters Encounter ID Performer Location Encounter Start Date Encounter Closed Date Diagnosis/Indication Diagnosis SNOMED-CT Code Diagnosis ICD10 Code Diagnosis IMO Codes Diagnosis Note [id number] [address] [place] [address] 11/14/2016 10:25:05 11/14/2016 11:56:51 [id number] [address] [place] [address] 09/25/2018 14:36:27 09/25/2018 15:07:15 [id number] [facility] [place] [address] 03/04/2024 13:02:59 03/04/2024 13:25:58 History and physical examination, occupation [id number] Z02.1 Health Concerns Section Related Observation LastModified by Organization Detai ls LastModified Time None Recorded Concern Status LastModified by Organization Details LastModified Time None Recorded Advance Directives Directive None Recorded Payers Insurance Date Sequence Insurance Name Policy Number Policy Hearn Covered Member ID Hearn Member ID Guarantor Name 03/04/2024 OC-ESCREEN Marek Traylor [facility] Marek Traylor
--- OUTSIDE RECORDS SUMMARY | 2025-01-09 07:17 | XMS_ITS | Clinical Summary ---
Author Organization [facility] Address [address] [place] [address] Care Team Providers Care Bellhop Service Captain Name Role Phone Unavailable Primary Care Provider [...] (Shingrix) (1 of 2) 06/07/2019 COVID-19 Vaccine (2024-2 6 season) 2024 Influenza (#1) 2024 HPV Vaccine [...]
[2025-01-09 10:32] LABS: MANUAL DIFF FLAG NO
[2025-01-09 10:38] LABS: Hematocrit 47.3 % (42.0-52.0); Hemoglobin 15.3 g/dl (14.0-18.0); Imm Gran Abs Auto 0.07 X10*3/uL (0.00-0.03); Imm Gran Pct Auto 0.8 % (0.0-0.4); Lymphocytes Absolute Auto 3.0 X10*3/uL (1.2-4.9); Mean Corpuscular HGB Conc 32.3 g/dl (31.0-36.0); Mean Corpuscular Hemoglobin 28.2 pg (27.0-33.0); Mean Corpuscular Volume 87.1 fL (80.0-98.0); NRBC Abs Auto 0.000 X10*3/uL (0.0-0.012); NRBC Pct Auto 0.0 /100WBC (0.0-0.2); Platelet Count 430 X10*3/uL (160-400); Red Blood Count 5.43 X10*6/uL (4.60-5.80); White Blood Count 9.2 X10*3/uL (4.8-10.8)
[2025-01-09 10:59] LABS: Alanine Aminotransferase 38 U/L (0-40); Albumin Level 4.5 g/dL (3.5-5.0); Alkaline Phosphatase 79 U/L (39-117); Anion Gap 13 (12-20); Aspartate Amino Transferase 29 U/L (5-37); Blood Urea Nitrogen 18 mg/dL (9-16); Calcium 9.3 mg/dL (8.4-10.2); Carbon Dioxide 27 mmol/L (22-29); Chloride 107 mmol/L (96-108); Cholesterol 220 mg/dL (<200); Estimated Glomerular Filt Rate > 60; HDL Cholesterol 52 mg/dL (>40); Potassium 4.1 mmol/L (3.3-5.1); Sodium 143 mmol/L (135-145); Total Protein 7.8 g/dL (6.5-8.0); Triglycerides 107 mg/dL (<150)
[2025-01-09 11:09] LABS: PSA,Total (Free>4and<10) 1.30 ng/mL (0.00-4.00)
[2025-01-09 11:10] LABS: Appearance Urine Clear; Glucose Urine UA Negative (Negative); PH 5.5 (5.0-9.0); Specific Gravity - Urine 1.025 (1.005-1.025); UMIC TRIGGER UACC YES
== END 2025-01-09 07:13 | disposition home or self-care (01) ==
LOC: HO.XRAY 07:12
PROVIDERS: PCP Internal Medicine; Visit Provider Internal Medicine
DX: Z00.00 Encounter for general adult medical examination without abnormal findings (principal); I10 Essential (primary) hypertension; R13.10 Dysphagia, unspecified; Z12.5 Encounter for screening for malignant neoplasm of prostate
CPT/HCPCS: 36415; 74220; 80053; 80061; 81001; 84153; 85025

== ENCOUNTER → 2025-01-09 07:14 | Outpatient (BNV) | payer BC, SELFPAY | PROVIDERS: PCP Internal Medicine; Visit Provider Radiology Diagnostic Radiology | DX: K44.9 Diaphragmatic hernia without obstruction or gangrene (principal); K21.9 Gastro-esophageal reflux disease without esophagitis | CPT/HCPCS: 74221 ==

== ENCOUNTER 2025-01-26 10:03 | Outpatient (AMB) | payer BC, SELFPAY ==
--- OUTSIDE RECORDS SUMMARY | 2024-11-27 06:07 | XMS_ITS ---
Author Organization Juma Pryor MD Address [address] [place] [phone] Care Team Providers Care Needle Polisher Name Role Phone Juma Pryor Primary Care Provider REASON FOR VISIT ct sinuses Encounters Encounter Location Date Provider Diagnosis Juma Pryor MD 10 [facility] [address] [place] [phone] 11/27/2024 Juma Pryor Chronic sinusitis, unspecified J32.9 Assessments Encounter Date Diagnosis (ICD Code) Assessment Notes Treatment Notes Treatment Clinical Notes Section Notes 11/27/2024 Chronic sinusitis, unspecified (ICD-10 - J32.9) Plan Of Treatment Future Test Test Name Order Date CT sinus w con 01/05/2025 Next Appt Details Provider Name:Juma burgos, 02/02/2025 07:45:00 AM, [address] [place] [address], [address], [phone], Provider Name:Juma burgos, 04/19/2025 07:45:00 AM, [address] [place] [address], [address], [phone], Provider Name:Juma Betancur ier, 01/10/2026 07:00:00 AM, [address], [address], [place], [phone], Provider Name:Juma Betancur ier, 01/17/2026 08:00:00 AM, [address], [address], [place], [phone], Progress Notes * CANDE LOZANODOB: 0 (54 yo M)Acc No.[id number]:11/27/2024 Patient: CANDE OCHOA :1970 A ge:54 Y S ex:Male Address: [address], [place], [address] Subjective: * Chief Complaints: * C t sinuses * Medical History: * Surgical History: * Hospitalization/Major Diagno stic Procedure: * Medications: Objective: * Vitals: * Physical Examination: Assessment: * Assessment: 1. C hronic sinusitis, unspecified - J32.9 Plan: * Treatment: * Procedure Codes: * true * Date: Generated for Elgin brooks/Gaudencio/Briansmitting on: 03/28/2024 11:57 AM EST
--- OUTSIDE RECORDS SUMMARY | 2024-11-30 04:00 | XMS_ITS ---
Author Organization Juma Pryor MD Address [address] [place], [place] [phone] Care Team Providers Care Geothermal Installer Name Role Phone Juma Pryor Primary Care Provider Allergies No Known Allergies Results Component Value Reference Range Notes UA ClnCatch+Micro w/rflx Cul t Reviewed date:11/30/2024 12:16:43 PM Interpretation: Performing Lab:[facility], [address] [place] [id number] Notes/Report: Urine, Clean Catch Color Urine Dark Yellow Appearance Urine Clear PH 6.0 5.0-9.0 Glucose Urine UA Negative Negative mg/dL Urine Blood Negative Negative Specific [place] - Urine 1.025 1.005-1.025 Urine Protein Trace Neg-Trace mg/dL Urine Ketones Trace Negative mg/dL Nitrite Urine Positive Negative Leukocyte Esterase Urine Negative Negative RBC Urine 0-2 0-2 /HPF WBC Urine 0-5 0-5 /HPF Squamous Epithelial Cell Urine 0-2 0-2 /HPF Bacteria Urine None Seen None Seen Hyaline Casts Urine 0-2 0-2 /LPF REASON FOR VISIT 3 month Medications Medication SIG (Take, Route, Frequency, Duration) Notes Start Date End Date Status Ibuprofen 200 MG 1 tablet with food or milk as needed Orally Three times a day Active Acetaminophen 500 MG 1 capsule as needed Orally every 6 hrs Active Docusate Sodium 100 MG 1 capsule as needed Orally Once a day Active Lidocaine 5 % 1 patch remove after 12 hours Externally Once a day for 30 days 11/30/2024 Active Senna 8.6 MG 2 tablets at bedtime as needed Orally Once a day Active Benadryl Allergy 25 MG 1 tablet at bedtime as needed Orally Once a day for 30 day(s) Not-Taking Tylenol 325 MG 2 tablet as needed Orally every 4 hrs Not-Taking Gabapentin 300 MG 1 capsule Orally Three times a day for 30 days Active Indomethacin 50 MG 1 capsule with food or milk Orally 3 times a day for 10 days 07/17/2024 Not-Taking Doxycycline Hyclate 100 MG 1 capsule Orally Once a day for 10 day(s) 03/16/2024 Not-Taking Methocarbamol 500 MG 1 tab Orally Four times a day Not-Taking Omeprazole 20 MG 1 capsule Orally Once a day for 30 days Active oxyCODONE HCl 5 MG 1 tablet as needed Orally every 6 hrs for 15 days Partial Fill upon Patient Request 11/17/2024 Active PARoxetine HCl 20 MG 1 tablet in the morning Orally Once a day for 30 days 05/29/2024 Active Valsartan-hydroCHLORO thiazide 80-12.5 MG 1 tablet Orally Once a day 03/16/2024 Not-Taking Vital Signs Blood pressure systolic 102 mm Hg 12/01/19 25 Blood pressure diastolic 66 mm Hg 025 Height 71 in 11/30/2024 Weight 227 lbs 11/30/2024 BMI 31.66 kg/m2 11/30/2024 weight is up 2 pounds since 11-17-24 Encounters Encounter Location Date Provider Diagnosis Juma Pryor MD [address] [place] [address] Drive [address] [place], [place] [phone] 11/30/2024 Juma Pryor Rib fractures S22.39XA and Polyuria R35.89 Assessments Encounter Date Diagnosis (ICD Code) Assessment Notes Treatment Notes Treatment Clinical Notes Section Notes 11/30/2024 Rib fractures (ICD-10 - S22.39XA) is going to trauma doctor next week/ x-rays orders given to patient, pending diagnostic studies Total time spent on the date of the encounter is 35 minutes including both face to face time spent and time spent reviewing documentation, pertinent lab data, studies and counseling the patient. 11/30/2024 Polyuria (ICD-10 - R35.89) lab pending Plan Of Treatment Medication Medication Name Sig Start Date Stop Date Notes Lidocaine 5 % 1 patch remove after 12 hours Externally Once a day for 30 days 11/30/2024 Treatment Notes Assessment Notes Rib fractures is going to trauma d octor next week/ x-rays orders given to patient, pending diagnostic studies Total time spent on the date of the encounter is 35 minutes including both face to face time spent and time spent reviewing documentation, pertinent lab data, studies and counseling the patient. Polyuria lab pending Pending Test Test Name Order Date XR CHEST 2 VIEW PA & LAT 11/30/2024 XR ribs RT min 3V w CXR1V 11/30/2024 Next Appt Details Follow Up: 4 Weeks, Reason: Provider Name:Juma burgos, 02/02/2025 07:45:00 AM, [address] [place] [address], [address], [phone], Provider Name:Juma burgos, 04/19/2025 07:45:00 AM, [address] [place] [address], [address], [phone], Provider Name:Juma burgos, 01/10/2026 07:00:00 AM, [address] [place] [address], [address], [phone], Provider Name:Juma burgos, 01/17/2026 08:00:00 AM, [address] [place] [address], [address], [phone], Progress Notes * CANDE LOZANODOB: 0 (54 yo M)Acc No.[id number]:11/30/2024 Progress Notes Patient: CANDE OCHOA Provider: Kaylin Pryor MD :1970 A ge:54 Y S ex:Male Date:11/30/2024 Address: [address], [id number] Subjective: * Chief Complaints: * 3 month * HPI: S ymptom(s): patient is a 54 yo male here for 3 month follow up visit still using incentive spirometer. . still with a lot of pain in ribs. has sharp pain in chest wth coughing. having difficulty with urination and tenderness in testicles. * ROS: G eneral/Constitutional: Denies C hills. D enies F atigue. D enies F ever. D enies H eadache. E NT: Denies S ore throat. R espiratory: Denies C ough. D enies S hortness of breath at rest. D enies S hortness of breath with exertion. G astrointestinal: Denies D iarrhea. D enies N ausea. * Medical History: * Surgical History: * Hospitalization/Major Diagno stic Procedure: * Medications: T akingSenna 8.6 MG Tablet 2 tablets at bedtime as needed Orally Once a day Docusate Sodium 100 MG Capsule 1 capsule as needed Orally Once a day Ibuprofen 200 MG Tablet 1 tablet with food or milk as needed Orally Three times a day Acetaminophen 500 MG Capsule 1 capsule as needed Orally every 6 hrs Omeprazole 20 MG Capsule Delayed Release 1 capsule Orally Once a day PARoxetine HCl 20 MG Tablet 1 tablet in the morning Orally Once a day oxyCODONE HCl 5 MG Tablet 1 tablet as needed Orally every 6 hrs , Notes to Pharmacist: Partial Fill upon Patient RequestGabapentin 300 MG Capsule 1 capsule Orally Three times a day Taking Senna 8.6 MG Tablet 2 tablets at bedtime as needed Orally Once a day Taking Docusate Sodium 100 MG Capsule 1 capsule as needed Orally Once a day Taking Ibuprofen 200 MG Tablet 1 tablet with food or milk as needed Orally Three times a day Taking Acetaminophen 500 MG Capsule 1 capsule as needed Orally every 6 hrs Taking Omeprazole 20 MG Capsule Delayed Release 1 capsule Orally Once a day Taking PARoxetine HCl 20 MG Tablet 1 tablet in the morning Orally Once a day Taking oxyCODONE HCl 5 MG Tablet 1 tablet as needed Orally every 6 hrs , Notes to Pharmacist: Partial Fill upon Patient RequestTaking Gabapentin 300 MG Capsule 1 capsule Orally Three times a day Not-Taking/PRNMethocarbamol 500 MG Tablet 1 tab Orally Four times a day Valsartan-hydroCHLOROthiazide 80-12.5 MG Tablet 1 tablet Orally Once a day Indomethacin 50 MG Capsule 1 capsule with food or milk Orally 3 times a day Doxycycline Hyclate 100 MG Capsule 1 capsule Orally Once a day Benadryl Allergy 25 MG Tablet 1 tablet at bedtime as needed Orally Once a day Tylenol 325 MG Tablet 2 tablet as needed Orally every 4 hrs Medication List reviewed and reconciled with the patientNot-Taking/PRN Methocarbamol 500 MG Tablet 1 tab Orally Four times a day Not-Taking/PRN Valsartan-hydroCHLOROthiazide 80-12.5 MG Tablet 1 tablet Orally Once a day Not-Taking/PRN Indomethacin 50 MG Capsule 1 capsule with food or milk Orally 3 times a day Not-Taking/PRN Doxycycline Hyclate 100 MG Capsule 1 capsule Orally Once a day Not-Taking/PRN Benadryl Allergy 25 MG Tablet 1 tablet at bedtime as needed Orally Once a day Not-Taking/PRN Tylenol 325 MG Tablet 2 tablet as needed Orally every 4 hrs Medication List reviewed and reconciled with the patient * Allergies: N .K.D.A.yes[Allergies Verified] Objective: * Vitals: H t: 71, Wt: 227, BMI:31.66, BP:102/66, Wt-k.97. weight is up 2 pounds since 11-17-24. * Examination: G eneral Examination: GENERAL APPEARANCE: w ell developed, well nourished. HEAD: n ormocephalic. SKIN: g ood turgor. HEART: n o murmurs, rubs, gallops, regular rate and rhythm.? LUNGS: n o wheezes, rales, rhonchi, good air movement, clear to auscultation bilaterally. CHEST: a bnormal with tenderness to palpation over the clavicle and the first ribs on the right. MALE GENITOURINARY: t esticles are mildly tender. ? Assessment: * Assessment: 1. R ib fractures - S22.39XA (Primary) 2 . P olyuria - R35.89 ? Plan: * Treatment: 2. P olyuria L AB: UA ClnCatch+Micro w/rflx Cult (Collection Date & Time - 11/30/2024 09:00 AM) Notes: lab pending * Procedure Codes: * Follow Up: 4 Weeks * * Sign off status: Completed true * Provider: Kaylin Pryor MD Date: 0 11/30/2024 Generated for Elgin brooks/Gaudencio/Ieshaitting on: 1 03/28/2024 11:57 AM EST History and Physical Notes * HPI (History of Present Illness) Category Sub-Category Detail Notes Category Not es Symptom(s) patient is a 54 yo male here for 3 month follow up visit still using incentive spirometer. . still with a lot of pain in ribs. has sharp pain in chest wth coughing. having difficulty with urination and tenderness in testicles Examination Category Sub-Category Detail Notes Category Not es General Examination GENERAL APPEARANCE: well developed , well nourished HEAD: normocephalic HEART: no murmurs, rubs, ga llops, regular rate and rhythm CHEST: abnormal with tender ness to palpation over the clavicle and the first ribs on the right LUNGS: no wheezes, rales, r honchi, good air movement, clear to auscultation bilaterally SKIN: good turgor MALE GENITOURINARY: testicles are mildly tender
--- OUTSIDE RECORDS SUMMARY | 2024-12-05 06:11 | XMS_ITS ---
Author Organization Juma Pryor MD Address [address] [place] [phone] Care Team Providers Care Grooving Lathe Tender Name Role Phone Juma Pryor Primary Care Provider [phone] REASON FOR VISIT new orders Encounters Encounter Location Date Provider Diagnosis Juma Pryor MD [address] [place] [phone] 12/05/2024 Juma Pryor Rib fractures S22.39XA Assessments Encounter Date Diagnosis (ICD Code) Assessment Notes Treatment Notes Treatment Clinical Notes Section Notes 12/05/2024 Rib fractures (ICD-10 - S22.39XA) Plan Of Treatment Pending Test Test Name Order Date XR ribs RT 2V 12/05/2024 Next Appt Details Provider Name:Juma Betancur ier, 02/02/2025 07:45:00 AM, [address] [place] [address], [address], [phone], Provider Name:Juma Betancur ier, 04/19/2025 07:45:00 AM, [address] [place] [address], [address], [phone], Provider Name:Juma burgos, 01/10/2026 07:00:00 AM, [address], [address], [place], [phone], Provider Name:Juma Betancur ier, 01/17/2026 08:00:00 AM, [address], [address], [place], [phone], Progress Notes * CANDE LOZANODOB: 0 (54 yo M)Acc No.[id number]:12/05/2024 Patient: CANDE OCHOA :1970 A ge:54 Y S ex:Male Address: [address], [place], [address] Subjective: * Chief Complaints: * N ew orders * Medical History: * Surgical History: * Hospitalization/Major Diagno stic Procedure: * Medications: Objective: * Vitals: * Physical Examination: Assessment: * Assessment: 1. R ib fractures - S22.39XA Plan: * Treatment: * Procedure Codes: * true * Date: Generated for Elgin brooks/Gaudencio/eTransmitting on: 03/28/2024 11:58 AM EST
--- OUTSIDE RECORDS SUMMARY | 2024-12-07 05:34 | XMS_ITS ---
Author Organization Juma Pryor MD Address [address] [place] [phone] Care Team Providers Care Sales Service Rep Name Role Phone Juma Pryor Primary Care Provider REASON FOR VISIT refill oxycodone Medications Medication SIG (Take, Route, Frequency, Duration) Notes Start Date End Date Status oxyCODONE HCl 5 MG 1 tablet as needed Orally every 6 hrs for 15 days Partial Fill upon Patient Request 12/07/2024 Active Encounters Encounter Location Date Provider Diagnosis Juma Pryor MD [address] [place] [phone] 12/07/2024 Juma Pryor Rib fractures S22.39XA Assessments Encounter Date Diagnosis (ICD Code) Assessment Notes Treatment Notes Treatment Clinical Notes Section Notes 12/07/2024 Rib fractures (ICD-10 - S22.39XA) Plan Of Treatment Medication Medication Name Sig Start Date Stop Date Notes oxyCODONE HCl 5 MG 1 tablet as needed Orally every 6 hrs for 15 days 12/07/2024 Partial Fill upon Patient Request Next Appt Details Provider Name:Juma burgos, 02/02/2025 07:45:00 AM, [address], [address], [place], [place], [phone], Provider Name:Juma Betancur ier, 04/19/2025 07:45:00 AM, [address] [place] [address] Drive, [address], [place], [phone], Provider Name:Juma Betancur ier, 01/10/2026 07:00:00 AM, [address] [place] [address], [address], [place], [phone], Provider Name:Juma Betancur ier, 01/17/2026 08:00:00 AM, [address] [facility], [address], [place], [phone], Progress Notes * CANDE LOZANODOB: 0 (54 yo M)Acc No.[id number]:12/07/2024 Patient: CANDE OCHOA :1970 A ge:54 Y S ex:Male Address: [address], [place], [address] * Refills Refill oxyCODONE HCl Tablet, 5 MG, Orally, 60 Tablet, 1 tablet as needed, every 6 hrs, 15 days, Refills=0 * true * Date: Generated for Elgin brooks/Gaduencio/Briansmitting on: 03/28/2024 12:00 PM EST
--- OUTSIDE RECORDS SUMMARY | 2024-12-29 07:06 | XMS_ITS ---
Author Organization Juma Pryor MD Address [address] [place] [phone] Care Team Providers Care Systems Analyst Engineer Name Role Phone Juma Pryor Primary Care Provider REASON FOR VISIT Ct sinuses Encounters Encounter Location Date Provider Diagnosis Juma Pryor MD [address] [facility] [address] [place] [phone] 12/29/2024 Juma Pryor Plan Of Treatment Next Appt Details Provider Name:Juma burgos, 02/02/2025 07:45:00 AM, [address] [place] [address], [address] [place] [address], [phone], Provider Name:Juma burgos, 04/19/2025 07:45:00 AM, [address] [place] [address], [address], [phone], Provider Name:Juma burgos, 01/10/2026 07:00:00 AM, [address] [place] [address], [address], [phone], Provider Name:Juma burgos, 01/17/2026 08:00:00 AM, [address], [address], [place], [place], [phone], Progress Notes * CANDE LOZANODOB: 0 (54 yo M)Acc No.[id number]:12/29/2024 Patient: CANDE OCHOA :1970 A ge:54 Y S ex:Male Address: [address], [place], [address] * true * Date: Generated for Elgin brooks/Gaudencio/eTransmitting on: 03/28/2024 11:58 AM EST
--- OUTSIDE RECORDS SUMMARY | 2025-01-05 05:15 | XMS_ITS ---
Author Organization Juma Pryor MD Address [address] [place], [place] [phone] Care Team Providers Care Cutting Inspector Name Role Phone Juma Pryor Primary Care Provider Allergies No Known Allergies Reason For Referral Reason abscess Axilla Diagnosis 1 Abscess (L02.91) Referral Organization Juma Pryor MD Referring Provider First Name Juma Referring Provider Last Name Konstantin Referring Provider Speciality Internal M edicine Referred Provider FIGUEROA JAIMES Referred Provider Specialty Infectious D isease General Notes Kate Hernandez 1 11:32:10 AM >ins referral faxed [phone] Annette 01/19/2025 01:08:00 PM > had to leave a message, Kate Hernandez 01/22/2025 11:04:34 AM >patient is aware of appt Referral Priority Routine Referral Appointment Date 01/26/2025 REASON FOR VISIT 1 month, insurance denied CT sinuses Medications Medication SIG (Take, Route, Frequency, Duration) Notes Start Date End Date Status Tylenol 325 MG 2 tablet as needed Orally every 4 hrs Not-Taking Benadryl Allergy 25 MG 1 tablet at bedtime as needed Orally Once a day for 30 day(s) Not-Taking Doxycycline Hyclate 100 MG 1 capsule Orally Once a day for 10 day(s) 03/16/2024 Not-Taking Indomethacin 50 MG 1 capsule with food or milk Orally 3 times a day for 10 days 07/17/2024 Not-Taking Valsartan-hydroCHLORO thiazide 80-12.5 MG 1 tablet Orally Once a day 03/16/2024 Not-Taking Gabapentin 300 MG 1 capsule Orally Three times a day for 30 days Active Methocarbamol 500 MG 1 tab Orally Four times a day Not-Taking Cephalexin 500 MG 1 capsule Orally every 6 hrs for 10 day(s) 01/05/2025 Active oxyCODONE HCl 5 MG 1 tablet as needed Orally every 6 hrs for 15 days Partial Fill upon Patient Request 12/07/2024 Not-Taking Lidocaine 5 % 1 patch remove after 12 hours Externally Once a day for 30 days 11/30/2024 Active PARoxetine HCl 20 MG 1 tablet in the morning Orally Once a day for 30 days 05/29/2024 Active Omeprazole 20 MG 1 capsule Orally Once a day for 30 days Active Acetaminophen 500 MG 1 capsule as needed Orally every 6 hrs Active Ibuprofen 200 MG 1 tablet with food or milk as needed Orally Three times a day Active Vital Signs Blood pressure systolic 112 mm Hg 01/06/20 25 Blood pressure diastolic 84 mm Hg 025 Height 71 in 01/05/2025 Weight 237 lbs 01/05/2025 BMI 33.05 kg/m2 01/05/2025 weight is up 10 pounds since 11-30-24 Encounters Encounter Location Date Provider Diagnosis Juma Pryor MD [address] [place] [address] [place] [phone] 01/05/2025 Juma Pryor Rotator cuff dysfunction, right M67.911 ; Rib fractures S22.39XA and Abscess L02.91 Assessments Encounter Date Diagnosis (ICD Code) Assessment Notes Treatment Notes Treatment Clinical Notes Section Notes 01/05/2025 Rotator cuff dysfunction, right (ICD-10 - M67.911) MRI order faxed to [facility] 01/05/2025 Rib fractures (ICD-10 - S22.39XA) [facility] 01/05/2025 Abscess (ICD-10 - L02.91) referral to dr jaimes for recurring abscess Plan Of Treatment Medication Medication Name Sig Start Date Stop Date Notes Cephalexin 500 MG 1 capsule Orally to ry 6 hrs for 10 day(s) 01/05/2025 Treatment Notes Assessment Notes Rotator cuff dysfunction, right MRI orde r faxed to [facility] Rib fractures [facility] Abscess referral to dr deb hendrickson for recurring abscess Pending Test Test Name Order Date MRI SHOULDER RT W&WO CONTRAST 01/05/2025 Referrals Referral Date Details 01/05/2025 01/05/2025, abscess Axilla, FIGUEROA RADHAK Next Appt Details Follow Up: 4 Weeks, Reason: Provider Name:Juma Betancur ier, 02/02/2025 07:45:00 AM, [address] [place] [address], [address] [place] [address], [phone], Provider Name:Juma Betancur ier, 04/19/2025 07:45:00 AM, [address] [place] [address], [address] [place] [address], [phone], Provider Name:Juma Betancur ier, 01/10/2026 07:00:00 AM, [address] [place] [address], [address] [place] [address], [phone], Provider Name:Juma Betancur ier, 01/17/2026 08:00:00 AM, [address] [place] [address], [address] [place] [address], [phone], Progress Notes * CANDE LOZANODOB: 0 (54 yo M)Acc No.[id number]:01/05/2025 Progress Notes Patient: CANDE OCHOA Provider: Kaylin Pryor MD :1970 A ge:54 Y S ex:Male Date:01/05/2025 Address: [address], [id number] Subjective: * Chief Complaints: * [address] [facility] * HPI: S ymptom(s): patient is a 54yo male here for one month follow up visit can't lift arm above shoulder. * ROS: G eneral/Constitutional: Denies Luanne benitez. Emilia enies F atigue. D enies F ever. D enies H eadache. E NT: Denies S ore throat. R espiratory: Nicol Stroud ough. Emilia enpascual S hortness of breath at rest. D enpascual S hortness of breath with exertion. G astrointestinal: Nicol Nieto iarrhea. D enpascual N ausea. M usculoskeletal: Patient complaining of s till with pain with coughing. seeing trauma surgeon. going back to them in few weeks. * Medical History: * Surgical History: * Hospitalization/Major Diagno stic Procedure: * Medications: T akingIbuprofen 200 MG Tablet 1 tablet with food or milk as needed Orally Three times a day Acetaminophen 500 MG Capsule 1 capsule as needed Orally every 6 hrs Omeprazole 20 MG Capsule Delayed Release 1 capsule Orally Once a day PARoxetine HCl 20 MG Tablet 1 tablet in the morning Orally Once a day Gabapentin 300 MG Capsule 1 capsule Orally Three times a day Lidocaine 5 % Patch 1 patch remove after 12 hours Externally Once a day Taking Ibuprofen 200 MG Tablet 1 tablet with food or milk as needed Orally Three times a day Taking Acetaminophen 500 MG Capsule 1 capsule as needed Orally every 6 hrs Taking Omeprazole 20 MG Capsule Delayed Release 1 capsule Orally Once a day Taking PARoxetine HCl 20 MG Tablet 1 tablet in the morning Orally Once a day Taking Gabapentin 300 MG Capsule 1 capsule Orally Three times a day Taking Lidocaine 5 % Patch 1 patch remove after 12 hours Externally Once a day Not- Taking/PRNoxyCODONE HCl 5 MG Tablet 1 tablet as needed Orally every 6 hrs , Notes to Pharmacist: Partial Fill upon Patient RequestMethocarbamol 500 MG Tablet 1 tab Orally Four [...] tablet as needed Orally every 4 hrs Not-Taking/PRN oxyCODONE HCl 5 MG Tablet 1 tablet as needed Orally every 6 hrs , Notes to Pharmacist: Partial Fill upon Patient RequestNot-Taking/PRN Methocarbamol 500 MG Tablet 1 tab Orally [...] tablet as needed Orally every 4 hrs DiscontinuedSenna 8.6 MG Tablet 2 tablets at bedtime as needed Orally Once a day Docusate Sodium 100 MG Capsule 1 capsule as needed Orally Once a day Medication List reviewed and reconciled with the patientDiscontinued Senna 8.6 MG Tablet 2 tablets at bedtime as needed Orally Once a day Discontinued Docusate Sodium 100 MG Capsule 1 capsule as needed Orally Once a day Medication List reviewed and reconciled with the patient * Allergies: N .K.D.A.yes[Allergies Verified] Objective: * Vitals: H t: 71, Wt: 237, BMI:33.05, BP:112/84, Wt-k.5. weight is up 10 pounds since 11-30-24. * Examination: G eneral Examination: GENERAL APPEARANCE: a lert, well hydrated, in no distress.? HEAD: n ormocephalic. SKIN: g ood turgor, abnormal with an abscess in axilla.? HEART: n o murmurs, rubs, gallops. LUNGS: n o wheezes, rales, rhonchi, good air movement, clear to auscultation bilaterally. EXTREMITIES: a bnormal with pain on elevation of rt arm..? Assessment: * Assessment: 1. R otator cuff dysfunction, right - M67.911 (Primary) 2 . R ib fractures - S22.39XA 3 . A bscess - L02.91 Plan: * Treatment: 2. R ib fractures Notes: [facility] 3. A bscess Start Cephalexin Capsule, 500 MG, 1 capsule, Orally, every 6 hrs, 10 day(s), 40. Notes: referral to dr jaimes for recurring abscess ? Referral To:FIGUEROA JAIMES Infectious Disease Reason:abscess Axilla * Procedure Codes: * Follow Up: 4 Weeks * * Sign off status: Completed true * Provider: Kaylin Pryor MD Date: Generated for Elgin brooks/Gaudencio/Nilton on: 03/28/2024 11:59 AM EST History and Physical Notes * HPI (History of Present Illness) Category Sub-Category Detail Notes Category Not es Symptom(s) patient is a 54 yo male here for one month follow up visit can't lift arm above shoulder. Examination Category Sub-Category Detail Notes Category Not es General Examination GENERAL APPEARANCE: alert, w ell hydrated, in no distress HEAD: normocephalic HEART: no murmurs, rubs, ga llops LUNGS: no wheezes, rales, r honchi, good air movement, clear to auscultation bilaterally SKIN: good turgor, abnorma l with an abscess in axilla EXTREMITIES: abnormal with pain o n elevation of rt arm. Consultation Request Notes Referral Date Referring Provider Referred Provider Not es 01/05/2025 Juma Pryor AMY abscess Axi lla
--- OUTSIDE RECORDS SUMMARY | 2025-01-08 03:48 | XMS_ITS ---
Author Organization Juma Pryor MD Address [address] [place] [phone] Care Team Providers Care Wood Patternmaker Apprentice Name Role Phone Juma Pryor Primary Care Provider [phone] REASON FOR VISIT NEW MRI ORDER Encounters Encounter Location Date Provider Diagnosis Juma Pryor MD [address] [place] [phone] 01/08/2025 Juma Pryor Rotator cuff dysfunction, right M67.911 Assessments Encounter Date Diagnosis (ICD Code) Assessment Notes Treatment Notes Treatment Clinical Notes Section Notes 01/08/2025 Rotator cuff dysfunction, right (ICD-10 - M67.911) Plan Of Treatment Pending Test Test Name Order Date MRI SHOULDER RT NO CONTRAST 01/08/2025 Next Appt Details Provider Name:Juma burgos, 02/02/2025 07:45:00 AM, [address] [place] [address], [address], [phone], Provider Name:Juma burgos, 04/19/2025 07:45:00 AM, [address] [place] [address], [address], [phone], Provider Name:Juma Betancur ier, 01/10/2026 07:00:00 AM, [address], [address], [place], [phone], Provider Name:Juma Betancur ier, 01/17/2026 08:00:00 AM, [address], [address], [place], [place], [phone], Progress Notes * CANDE LOZANODOB: 0 (54 yo M)Acc No.[id number]:01/08/2025 Patient: CANDE OCHOA :1970 A ge:54 Y S ex:Male Address: [address], [place], [address] Subjective: * Chief Complaints: * N EW MRI ORDER * Medical History: * Surgical History: * Hospitalization/Major Diagno stic Procedure: * Medications: Objective: * Vitals: * Physical Examination: Assessment: * Assessment: 1. R otator cuff dysfunction, right - M67.911 Plan: * Treatment: * Procedure Codes: * true * Date: Generated for Elgin brooks/Gaudencio/Briansmitting on: 03/28/2024 11:59 AM EST
--- OUTSIDE RECORDS SUMMARY | 2025-01-09 02:00 | XMS_ITS ---
Author Organization Juma Pryor MD Address [address] [place], [place] [phone] Care Team Providers Care Motors And Controls Tester Name Role Phone Juma Pryor Primary Care Provider Results Component Value Reference Range Notes UA ClnCatch+Micro w/rflx Cul t (Not yet reviewed by provider) Interpretation:02-02-2025 Performing Lab:[facility], [address] [place] [phone] Notes/Report: Urine, Clean Catch Color Urine Dark Yellow Appearance Urine Clear PH 5.5 5.0-9.0 Glucose Urine UA Negative Negative mg/dL Urine Blood Trace Negative Specific Arley - Urine 1.025 1.005-1.025 Urine Protein Negative Neg-Trace mg/dL Urine Ketones Negative Negative mg/dL Nitrite Urine Negative Negative Leukocyte Esterase Urine Negative Negative RBC Urine 0-2 0-2 /HPF WBC Urine 0-5 0-5 /HPF Squamous Epithelial Cell Urine 0-2 0-2 /HPF Bacteria Urine None Seen None Seen Hyaline Casts Urine 0-2 0-2 /LPF Complete Blood Count Auto Di ff Reviewed date:01/09/2025 05:12:29 PM Interpretation: Performing Lab:[facility], [address] [place] [phone] Notes/Report: White Blood Count 9.2 4.8-10.8 X10*3/uL Red Blood Count 5.43 4.60-5.80 X10*6/uL Hemoglobin 15.3 14.0-18.0 g/dl Hematocrit 47.3 42.0-52.0 % Mean Corpuscular Volume 87.1 80.0-98.0 fL Mean Corpuscular Hemoglobin 28.2 27.0-33.0 pg Mean Corpuscular HGB Conc 32.3 31.0-36.0 g/dl Red Cell Distribution Width 14.6 11.0-16.0 % Platelet Count 430 160-400 X10*3/uL Mean Platelet Volume 9.0 9.4-12.4 fL Neutrophils Percent Auto 49.6 45-73 % Imm Gran Pct Auto 0.8 0.0-0.4 % Lymphocytes Percent Auto 32.3 20-40 % Monocytes Percent Auto 8.7 2-11 % Eosinophils Percent Auto 7.5 0-4 % Basophils Percent Auto 1.1 0-2 % NRBC Pct Auto 0.0 0.0-0.2 /100WBC Neutrophils Absolute Auto 4.6 2.0-8.3 x10*3/u L Imm Gran Abs Auto 0.07 0.00-0.03 X10*3/uL Lymphocytes Absolute Auto 3.0 1.2-4.9 X10*3/u L Monocytes Absolute Auto 0.8 0.1-1.2 X10*3/uL Eosinophils Absolute Auto 0.7 0.0-0.4 X10*3/u L Basophils Absolute Auto 0.1 0.0-0.2 X10*3/uL NRBC Abs Auto 0.000 0.0-0.012 X10*3/uL Comprehensive [place]. Panel Fa st Reviewed date:01/10/2025 01:05:31 PM Interpretation: Performing Lab:[facility], [address] [place] [phone] Notes/Report: Sodium 143 135-145 mmol/L Potassium 4.1 3.3-5.1 mmol/L Chloride 107 96-108 mmol/L Carbon Dioxide 27 22-29 mmol/L Anion Gap 13 12-20 Blood Urea Nitrogen 18 9-16 mg/dL Creatinine 0.95 0.5-1.4 mg/dL Estimated Glomerular Filt Rate > 60 Chronic Kidney Disease: Estimated GFR < 60 mL/min/1.73m2 Severe Kidney Disease: Estimated GFR < 15 mL/min/1.73m2 Glucose Fasting 103 60-99 mg/dL A fasting glucose from 100-125 mg/dl is considered impaired (pre-diabetes). Calcium 9.3 8.4-10.2 mg/dL Bilirubin Total 0.7 0.0-1.0 mg/dL Aspartate Amino Transferase 29 5-37 U/L Alanine Aminotransferase 38 0-40 U/L Total Protein 7.8 6.5-8.0 g/dL Albumin Level 4.5 3.5-5.0 g/dL Alkaline Phosphatase 79 39-117 U/L Lipid Panel Reviewed date:01/09/2025 12:40:57 PM Interpretation: Performing Lab:[address] [phone] Notes/Report: Triglycerides 107 <150 mg/dL Desirable Triglyceride: less than 150 mg/dL Borderline High Triglyceride 150-199 mg/dL High Triglyceride: 200-499 mg/dL Very High Triglyceride: greater than or equal to 5OO mg/dL Cholesterol 220 <200 mg/dL Desirable Cholesterol: less than 200 mg/dL Borderline High Cholesterol: 200-239 mg/dL High Cholesterol: greater than 239 mg/dL LDL Cholesterol Calculated 147 <100 mg/dL Desirable LDL: less than 100 mg/dL Near Optimal/Above Optimal LDL: 110-129 mg/dL Borderline High LDL: 130-159 mg/dL High LDL: 160-189 mg/dL Very High LDL: greater than or equal to 190 mg/dL HDL Cholesterol 52 >40 mg/dL Desirable HDL: greater than 40 mg/dL Note: This HDL assay may give artificially low results in patients with liver disease. PSA,Total (Free>4and<10) Reviewed date:01/09/2025 12:35:02 PM Interpretation: Performing Lab:[address] [phone] Notes/Report: PSA,Total (Free>4and<10) 1.30 0.00-4.00 ng/mL A Free PSA was not performed: The percentage of Free PSA can be used to enhance the differentiation of prostate cancer from benign prostatic disease in subjects whose PSA levels are between 4.0 and 10.0 ng/mL. For subjects whose PSA levels are below 4.0 or above 10.0 ng/mL, the risk of prostate cancer is determined on the basis of the PSA alone. Therefore the % Free PSA is recommended only for those subjects whose PSA levels are between 4.0 and 10.0 ng/mL. PSA methodology: Reed Alinity i Chemiluminescent Microparticle Immunoassay (CMIA) REASON FOR VISIT yearly fasting labs Encounters Encounter Location Date Provider Diagnosis Juma Pryor MD [address] [place] [phone] 01/09/2025 Juma Pryor Blood tests for routine general physical examination Z00.00 and Essential hypertension I10 Assessments Encounter Date Diagnosis (ICD Code) Assessment Notes Treatment Notes Treatment Clinical Notes Section Notes 01/09/2025 Blood tests for routine general physical examination (ICD-10 - Z00.00) 01/09/2025 Essential hypertension (ICD-10 - I10) Plan Of Treatment Pending Test Test Name Order Date UA ClnCatch+Micro w/rflx Cult 01/09/2025 Next Appt Details Provider Name:Juma burgos, 02/02/2025 07:45:00 AM, [address] [place] [address], [address], [phone], Provider Name:Juma burgos, 04/19/2025 07:45:00 AM, [address] [place] [address], [phone], Provider Name:Juma burgos, 01/10/2026 07:00:00 AM, [address] [place] [address], [phone], Provider Name:Juma burgos, 01/17/2026 08:00:00 AM, [address] [place] [address], [phone], Progress Notes * CANDE LOZANODOB: 0 (54 yo M)Acc No.[id number]:01/09/2025 Progress Note Patient: Domenica CHÁVEZCANDE Provider: Kaylin Pryor MD :1970 A ge:54 Y S ex:Male Date:01/09/2025 Address: [address], [place], [id number] Subjective: * Chief Complaints: * 1 . Yearly fasting labs. * Medical History: Objective: * Vitals: Assessment: * Assessment: 1. B lood tests for routine general physical examination - Z00.00 (Primary) 2 .?Essential hypertension - I10 Plan: * Treatment: 2. E ssential hypertension L AB: UA ClnCatch+Micro w/rflx Cult (Collection Date & Time - 01/09/2025 07:00 AM) L AB: Complete Blood Count Auto Diff (Collection Date & Time - 01/09/2025 07:00 AM) L AB: Comprehensive [place]. Panel Fast (Collection Date & Time - 01/09/2025 07:00 AM) L AB: Lipid Panel (Collection Date & Time - 01/09/2025 07:00 AM) L AB: PSA,Total (Free>4and<10) (Collection Date & Time - 01/09/2025 07:00 AM) * Procedure Codes: 3 6415 VENIPUNCT, ROUTINE* * * The named appointment provid er may or may not be the originator of this progress note, and it is not deemed complete until electronically signed by the appointment provider. Sign off status: Pending * Provider: Kaylin Pryor MD Date: Generated for Elgin brooks/Gaudencio/Ieshaitting on: 03/28/2024 11:57 AM EST
--- OUTSIDE RECORDS SUMMARY | 2025-01-15 04:30 | XMS_ITS ---
Author Organization Juma Pryor MD Address [address] [place], [place] [id number] Care Team Providers Care Field Laborer Name Role Phone Juma Pryor Primary Care Provider Allergies No Known Allergies REASON FOR VISIT annual visit Medications Medication SIG (Take, Route, Frequency, Duration) Notes Start Date End Date Status PARoxetine HCl 20 MG 1 tablet in the morning Orally Once a day for 30 days 05/29/2024 Active Tamsulosin HCl 0.4 MG 1 capsule Orally twice a day for 10 days 01/15/2025 Active Gabapentin 300 MG 1 capsule Orally Three times a day for 30 days Active Benadryl Allergy 25 MG 1 tablet at bedtime as needed Orally Once a day for 30 day(s) Not-Taking Omeprazole 20 MG 1 capsule Orally Once a day for 30 days Active Tylenol 325 MG 2 tablet as needed Orally every 4 hrs Not-Taking Ibuprofen 200 MG 1 tablet with food or milk as needed Orally Three times a day Active Acetaminophen 500 MG 1 capsule as needed Orally every 6 hrs Active oxyCODONE HCl 5 MG 1 tablet as needed Orally every 6 hrs for 15 days Partial Fill upon Patient Request 12/07/2024 Not-Taking Methocarbamol 500 MG 1 tab Orally Four times a day Not-Taking Valsartan-hydroCHLORO thiazide 80-12.5 MG 1 tablet Orally Once a day 03/16/2024 Not-Taking Indomethacin 50 MG 1 capsule with food or milk Orally 3 times a day for 10 days 07/17/2024 Not-Taking Doxycycline Hyclate 100 MG 1 capsule Orally Once a day for 10 day(s) 03/16/2024 Not-Taking Social History Tobacco Use: Social History Observation [...] Never (0 point) Points 1 Interpretation Negative Vital Signs Blood pressure systolic 114 mm Hg 01/16/20 25 Blood pressure diastolic 80 mm Hg 025 Height 71 in 01/15/2025 Weight 243 lbs 01/15/2025 BMI 33.89 kg/m2 01/15/2025 weight is up 6 pounds since 01-05-25 Encounters Encounter Location Date Provider Diagnosis Juma Pryor MD [address] [place] [address] [place] [phone] 01/15/2025 Juma Pryor History of kidney stones Z87.442 ; Adult general medical examination Z00.00 ; Kidney stone N20.0 ; Reflux esophagitis K21.00 ; Essential hypertension I10 and Depression screening Z13.31 Assessments Encounter Date Diagnosis (ICD Code) Assessment Notes Treatment Notes Treatment Clinical Notes Section Notes 01/15/2025 History of kidney stones (ICD-10 - Z87.442) 01/15/2025 Adult general medical examination (ICD-10 - Z00.00) labs reviewed and discussed with patient 01/15/2025 Kidney stone (ICD-10 - N20.0) patient verbalized understanding of medication and directions for use 01/15/2025 Reflux esophagitis (ICD-10 - K21.00) stable, will continue current regiment 01/15/2025 Essential hypertension (ICD-10 - I10) stable, will contiue to monitor 01/15/2025 Depression screening (ICD-10 - Z13.31) negative screen Plan Of Treatment Medication Medication Name Sig Start Date Stop Date Notes Tamsulosin HCl 0.4 MG 1 capsule Orally t wice a day for 10 days 01/15/2025 Treatment Notes Assessment Notes Adult general medical examination labs r eviewed and discussed with patient Kidney stone patient verbalized u nderstanding of medication and directions for use Reflux esophagitis stable, will continu e current regiment Essential hypertension stable, will cont iue to monitor Depression screening negative screen Next Appt Details Follow Up: 3 Months, Reason: Provider Name:Juma burgos, 02/02/2025 07:45:00 AM, [address] [place] [address], [phone], Provider Name:Juma burgos, 04/19/2025 07:45:00 AM, [address] [place] [address], [phone], Provider Name:Juma burgos, 01/10/2026 07:00:00 AM, [address] [place] [address], [phone], Provider Name:Juma burgos, 01/17/2026 08:00:00 AM, [address] [place] [address], [phone], Progress Notes * MARTAKAILEYALVINDOB: 0 (54 yo M)Acc No.[id number]:01/15/2025 Progress Notes Patient: CANDE OCHOA Provider: Kaylin Pryor MD :1970 A ge:54 Y S ex:Male Date:01/15/2025 Address:[address] [place], [place] [address]LESVIA RIVAS, [facility] CELINA [id number] Subjective: * Chief Complaints: * A nnual visit * HPI: D epression Screening: PHQ-9 L ittle interest or pleasure in doing things N ot at all, F eeling down, depressed, or hopeless N ot at all, T rouble falling or staying asleep, or sleeping too much N ot at all, F eeling tired or having little energy N ot at all, P oor appetite or overeating N ot at all, F eeling bad about yourself or that you are a failure, or have let yourself or your family down N ot at all, T rouble concentrating on things, such as reading the newspaper or watching television N ot at all, M oving or speaking so slowly that other people could have noticed; or the opposite, being so fidgety or restless that you have been moving around a lot more than usual N ot at all, T houghts that you would be better off or of hurting yourself in some way N ot at all, T otal Score 0 . I nterpretation and Intervention D epression Screening Findings N egative, F ollow-Up for Depression : review of PHQ-9 found negative result, no follow-up needed, P atient Lifestyle Goals P atient wants to maintain a healthy emotional balance, B arriers N o specific barriers, is motivated to feel better, works at this everyday, S elf-Managment Goals E xercise at least 3xs per week. C ommunication Needs: Communication Needs D oes the patient have a hearing impairment N o, D oes the patient have a vision impairment? Y es, I f yes, what is the vision impairment? G lasses, D oes the patient have a cognition impairment? N o. F all Risk: History H ave you had any falls with injury in the past year? Y es, H ave you had two or more falls in the past year? N o. S HENRY Questions: SDOH Questions I n the past year have you been worried about losing housing? N o, I n the past year have you or any family members you live with been unable to get any of the following when it was really needed? Check all that apply: N one. S ymptom(s): patient is a 54 yo male here for annual visit with review of recent labs and follow p of chronic issues s till waiting for mri shoulder. trauma clinic is ordering it. has pain with coughing fee.s as though he has a kidney stone. took some ibuprofen. feels as though he has to pee all the time. * ROS: G eneral/Constitutional: Change in appetite d enies. C hills d enies. F ever d enies. O phthalmologic: Blurred vision d enies. D ischarge d enies. P ain d enies. E NT: Decreased hearing d enies. S ore throat d enies.?Swollen glands d enies. E ndocrine: Cold intolerance d enies. E xcessive thirst d enies. H eat intolerance d enies. W eight loss d enies. R espiratory: Cough d enies. S hortness of breath at rest d enies. S hortness of breath with exertion d enies. W heezing d enies. C ardiovascular: Chest pain at rest d enies. C hest pain with exertion?denies. I rregular heartbeat d enies. S hortness of breath d enies. ? G astrointestinal: Abdominal pain d enies. C hange in bowel habits d enies. D iarrhea d enies. N ausea d enies. R ectal bleeding d enies. V omiting d enies . G enitourinary: Blood in urine d enies. D ifficulty urinating d enies. F requent urination d enies. M usculoskeletal: Painful joints d enies. W eakness d enies. ? S kin: Dry skin d enies. I tching d enies. D enies?Mole(s), changes in moles, new moles or any lesions of concern. D enies P hotosensitivity. R dick d enies. N eurologic: Dizziness d enies. F ainting d enies. H eadache?denies. * Medical History: * Surgical History: * Hospitalization/Major Diagno stic Procedure: * Family History: F ather: alive 88 yrs, diagnosed with Diabetes. M other: 55 yrs, diagnosed with Cancer. 2 brother(s) . . Patient has 2 adopted children, No pertinent family medical history, Denies mental health/substance abuse family history, No pertinent family medical history Father parkinson's, Denies mental health/substance abuse family history, Denies mental health/substance abuse family history. * Social History: T obacco Use: T obacco Use/Smoking P atient is a f ormer smoker, H ow long has it been since you last smoked? > 10 years, A dditional Findings: Tobacco Non-User F ormer smoker, currently using no form of tobacco. D rugs/Alcohol: A lcohol Screen D id you have a drink containing alcohol in the past year? Y es, H ow often did you have a drink containing alcohol in the past year? M onthly or less (1 point), H ow many drinks did you have on a typical day when you were drinking in the past year? 1 or 2 drinks (0 point), H ow often did you have 6 or more drinks on one occasion in the past year? N ever (0 point), P oints 1 , I nterpretation N egative. M iscellaneous: C affeine: yes, frequency:, 2-3 cups per day. Children: yes. Exercise: yes, walks at work 4 miles. Home smoke detector use: yes. Housing: owning. Living with: spouse, family. Marital status: . Occupation: weeks/months/years, works full- time. Pets: cats: dogs:2 dogs. * Medications: T akingIbuprofen 200 MG Tablet [...] capsule Orally Three times a day Taking Ibuprofen 200 MG Tablet [...] 1 capsule Orally Three times a day Not-Taking/PRNoxyCODONE HCl 5 MG Tablet 1 tablet as [...] tablet as needed Orally every 4 hrs DiscontinuedLidocaine 5 % Patch 1 patch remove after 12 hours Externally Once a day Cephalexin 500 MG Capsule 1 capsule Orally every 6 hrs Medication List reviewed and reconciled with the patientDiscontinued Lidocaine 5 % Patch 1 patch remove after 12 hours Externally Once a day Discontinued Cephalexin 500 MG Capsule 1 capsule Orally every 6 hrs Medication List reviewed and reconciled with the patient * Allergies: N .K.D.A.yes[Allergies Verified] Objective: * Vitals: H t: 71, Wt: 243, BMI:33.89, BP:114/80, Wt-k.22. weight is up 6 pounds since 01-05-25. * P ast Orders: L ab:Lipid Panel (Order Date - 01/09/2025) (Collection Date & Time - 01/09/2025 07:00 AM) Value Reference Range Triglycerides 107 <150 - mg/dL Cholesterol 220 H <200 - mg/dL LDL Cholesterol Calculated 147 H <100 - mg/dL HDL Cholesterol 52 >40 - mg/dL L ab:PSA,Total (Free>4and<10) (Order Date - 01/09/2025) (Collection Date & Time - 01/09/2025 07:00 AM) Value Reference Range PSA,Total (Free>4and<10) 1.30 0.00-4.00 - ng/ mL L ab:Complete Blood Count Auto Diff (Order Date - 01/09/2025) (Collection Date & Time - 01/09/2025 07:00 AM) Value Reference Range White Blood Count 9.2 4.8-10.8 - X10*3/uL Red Blood Count 5.43 4.60-5.80 - X10*6/uL Hemoglobin 15.3 14.0-18.0 - g/dl Hematocrit 47.3 42.0-52.0 - % Mean Corpuscular Volume 87.1 80.0-98.0 - fL Mean Corpuscular Hemoglobin 28.2 27.0-33.0 - pg Mean Corpuscular HGB Conc 32.3 31.0-36.0 - g/ dl Red Cell Distribution Width 14.6 11.0-16.0 - % Platelet Count 430 H 160-400 - X10*3/uL Mean Platelet Volume 9.0 L 9.4-12.4 - fL Neutrophils Percent Auto 49.6 45-73 - % Imm Gran Pct Auto 0.8 H 0.0-0.4 - % Lymphocytes Percent Auto 32.3 20-40 - % Monocytes Percent Auto 8.7 2-11 - % Eosinophils Percent Auto 7.5 H 0-4 - % Basophils Percent Auto 1.1 0-2 - % NRBC Pct Auto 0.0 0.0-0.2 - /100WBC Neutrophils Absolute Auto 4.6 2.0-8.3 - x10* 3/uL Imm Gran Abs Auto 0.07 H 0.00-0.03 - X10*3/uL Lymphocytes Absolute Auto 3.0 1.2-4.9 - X10* 3/uL Monocytes Absolute Auto 0.8 0.1-1.2 - X10*3/ uL Eosinophils Absolute Auto 0.7 H 0.0-0.4 - X10* 3/uL Basophils Absolute Auto 0.1 0.0-0.2 - X10*3/ uL NRBC Abs Auto 0.000 0.0-0.012 - X10*3/uL L ab:Comprehensive [place]. Panel Fast (Order Date - 01/09/2025) (Collection Date & Time - 01/09/2025 07:00 AM) Value Reference Range Sodium 143 135-145 - mmol/L Bilirubin Total 0.7 0.0-1.0 - mg/dL Aspartate Amino Transferase 29 5-37 - U/L Alanine Aminotransferase 38 0-40 - U/L Total Protein 7.8 6.5-8.0 - g/dL Albumin Level 4.5 3.5-5.0 - g/dL Alkaline Phosphatase 79 39-117 - U/L Potassium 4.1 3.3-5.1 - mmol/L Chloride 107 96-108 - mmol/L Carbon Dioxide 27 22-29 - mmol/L Anion Gap 13 12-20 - Blood Urea Nitrogen 18 H 9-16 - mg/dL Creatinine 0.95 0.5-1.4 - mg/dL Estimated Glomerular Filt Rate > 60 - Glucose Fasting 103 H 60-99 - mg/dL Calcium 9.3 8.4-10.2 - mg/dL * Examination: G eneral Examination: GENERAL APPEARANCE: w ell developed, well nourished, in no acute distress. HEAD: n ormocephalic, atraumatic. EYES: p upils equal, round, reactive to light and accommodation, sclera non-icteric. EARS: n ormal. ORAL CAVITY: m ucosa moist. THROAT: c lear. NECK/THYROID: n ana lilia supple, full range of motion, no cervical lymphadenopathy, no bruits. SKIN: w arm and dry, no suspicious lesions. HEART: r egular rate and rhythm, S1, S2 normal, no murmurs.? LUNGS: c lear to auscultation bilaterally. ABDOMEN: s oft, nontender, nondistended, bowel sounds present, normal, no organomegaly , no masses palpable. RECTAL EXAM: d eclined. MALE GENITOURINARY: d eclined. EXTREMITIES: n o clubbing, cyanosis, or edema. NEUROLOGIC: n onfocal, motor strength normal upper and lower extremities, sensory exam intact. Assessment: * Assessment: 1. A dult general medical examination - Z00.00 (Primary) 2 . H istory of kidney stones - Z87.442 3 . K idney stone - N20.0 4 . R eflux esophagitis - K21.00 5 . E ssential hypertension - I10 6 . D epression screening - Z13.31 Plan: * Treatment: 2. K idney stone Start Tamsulosin HCl Capsule, 0.4 MG, 1 capsule, Orally, twice a day, 10 days, 20 Capsule. ? Notes: patient verbalized understanding of medication and directions for use 3. R eflux esophagitis Notes: stable, will continue current regiment 4. E ssential hypertension Notes: stable, will contiue to monitor 5. D epression screening Notes: negative screen * Procedure Codes: * Preventive Medicine: Counseling: C are goal follow-up plan: Luanne leyvanseling for abnormal BMI provided?Yes, Rajesh camargo Normal BMI Follow-up Kaylin valdez encouragement to exercise. * Follow Up: 3 Months * * Sign off status: Completed true * Provider: Kaylin Pryor MD Date: 03/17/2024 Generated for Elgin brooks/Gaudencio/Juanransmitting on: 03/28/2024 11:57 AM EST History and Physical Notes * HPI (History of Present Illness) Category Sub-Category Detail Notes Category Not es Symptom(s) patient is a 54 yo male here for annual visit with review of recent labs and follow p of chronic issues still waiting for mri shoulder. trauma clinic is ordering it. has pain with coughing fee.s as though he has a kidney stone. took some ibuprofen. feels as though he has to pee all the time Depression Screening PHQ-9 Little inte rest or pleasure in doing things: Not at all Feeling down, depressed, or hopeless: No t at all Trouble falling or staying asleep, or sl eeping too much: Not at all Feeling tired or having little energy: N ot at all Poor appetite or overeating: Not at all Feeling bad about yourself o r that you are a failure, or have let yourself or your family down: Not at all Trouble concentrating on thi ngs, such as reading the newspaper or watching television: Not at all Moving or speaking so slowly that other people could have noticed; or the opposite, being so fidgety or restless that you have been moving around a lot more than usual: Not at all Thoughts that you would be b joanna off or of hurting yourself in some way: Not at all Total Score: 0 Interpretation and Intervention Depression Scree jam Findings: Negative Follow-Up for Depression: : review of PH Q-9 found negative result, no follow-up needed Patient Lifestyle Goals: Patient wants t o maintain a healthy emotional balance Barriers: No specific barriers , is motivated to feel better, works at this everyday Self-Managment Goals: Exercise at least 3xs per week SDOH Questions SDOH Questions In the past year have you been worried about losing housing?: No In the past year have you or any family members you live with been unable to get any of the following when it was really needed? Check all that apply:: None Fall Risk History Have you had any falls with injury i n the past year?: Yes Have you had two or more falls in the year?: No Communication Needs Communication Needs Does the patient have a hearing impairment: No Does the patient have a vision impairmen t?: Yes If yes, what is the vision impairment?: Glasses Does the patient have a cognition impair ment?: No Examination Category Sub-Category Detail Notes Category Not es General Examination GENERAL APPEARANCE: well dev eloped, well nourished, in no acute distress HEAD: normocephalic, atrau matic EYES: pupils equal, round, reactive to light and accommodation, sclera non-icteric EARS: normal THROAT: clear NECK/THYROID: neck supple, full ra nge of motion, no cervical lymphadenopathy, no bruits HEART: regular rate and rhy thm, S1, S2 normal, no murmurs LUNGS: clear to auscultatio n bilaterally ABDOMEN: soft, nontender, non distended, bowel sounds present, normal, no organomegaly , no masses palpable NEUROLOGIC: nonfocal, motor stre ngth normal upper and lower extremities, sensory exam intact SKIN: warm and dry, no carlo picious lesions EXTREMITIES: no clubbing, cyanosi s, or edema MALE GENITOURINARY: declined RECTAL EXAM: declined ORAL CAVITY: mucosa moist
--- OUTSIDE RECORDS SUMMARY | 2025-01-18 05:04 | XMS_ITS ---
Author Organization Juma Pryor MD Address [address] [place] [phone] Care Team Providers Care Appeals Analyst Name Role Phone Juma Pryor Primary Care Provider REASON FOR VISIT work note Encounters Encounter Location Date Provider Diagnosis Juma Pryor MD [facility] [address] [place] [phone] 01/18/2025 Jmua Pryor Plan Of Treatment Next Appt Details Provider Name:Juma burgos, 02/02/2025 07:45:00 AM, [address] [place] [address], [address] [place] [address], [phone], Provider Name:Juma burgos, 04/19/2025 07:45:00 AM, [address] [place] [address], [address], [phone], Provider Name:Juma burgos, 01/10/2026 07:00:00 AM, [address] [place] [address], [address], [phone], Provider Name:Juma burgos, 01/17/2026 08:00:00 AM, [address], [address], [place], [phone], Progress Notes * CANDE LOZANODOB: 0 (54 yo M)Acc No.[id number]:01/18/2025 Patient: CANDE OCHOA :1970 A ge:54 Y S ex:Male Address: [address], [place], [address] * true * Date: Generated for Elgin brooks/Gaudencio/eTransmitting on: 03/28/2024 11:56 AM EST
--- NOTE | 2025-01-26 10:04 | A.OFFVIS_ITS ---
Vital Signs 01/26/25 10:10 Height 6 ft Weight 252 lb BMI 34.2 BP 154/84 H Blood Pressure Location Lt brachial Position Sitting Pulse 111 H Pulse Oximetry (%) 98 Oxygen Delivery Method Room Air Intake Visit Reasons: Dr. Pryor reff/ Abscess Axilla Allergies opoids Allergy (Severe, Uncoded 01/26/25 10:10) nausea sulfa drugs Allergy (Unknown, Uncoded 01/26/25 10:10) Unknown HPI Comments Details: History of Present Illness The patient is a 54 year old male presenting with recurrent lesions in the right axilla and groin. He reports having experienced similar lesions for several years, characterized by pain and discomfort, swelling, and pus-filled formations. Familial predisposition is considered, as his daughter and granddaughter have experienced similar dermatological conditions. Notably, the patient has not been diagnosed with MRSA, although one abscess required drainage and was found to have staph colonization. The patient typically does not experience fevers or chills in relation to these boil-like lesions. The patient was most recently given a course of Cephalexin for an abscess noted on January 05. The primary care follow-up was advised with Dr. Shwetha Pryor. The patient has tried antibacterial skin washes for management which he can obtain from a pharmacy. His past medical history is significant for kidney stones and he reports some episodes of shoulder discomfort, though these issues appear unrelated to the current skin concerns as per the current assessment provided. Review of Systems - Skin: Reports recurrent boil-like lesions in the right axilla and groin. - Constitutional: Denies fevers or chills. - Family History: Reports similar skin lesions in daughter and granddaughter. Physical Exam - Vitals- Stable - Oropharynx- Clear - Pulmonary- Lungs clear to auscultation - Cardiac- Regular rhythm - Abdomen- Soft, non-tender - Extremities- Non-tender - Skin- Healing axilla boil noted Results Plan Patient was informed and verbally consented to the use of an ambient scribe for clinic note documentation during this visit. 1. Hidradenitis suppurativa L73.2 The patient is advised to use antibacterial skin wash twice a week. A course of doxycycline is prescribed to manage future recurrences of the lesions, taking 10 days' worth at a time, with a total allowance for 30 days to reduce inflammation and prevent bacterial development. 2. History Of Kidney Stones No management plan required as this was not addressed during this specific visit. 3. Shoulder Discomfort This issue is currently not prioritised for treatment as it is unrelated to the primary visit concerns. Discussion Notes I discussed with the patient that the recurrent boil-like lesions in his axillary and groin areas are indicative of Hidradenitis Suppurativa. The decision to prescribe doxycycline was discussed, focusing on its efficacy in reducing both bacterial presence and inflammation. I explained the benefits of using antibacterial washes to manage bacterial load on the skin. We have a plan in place for early intervention with doxycycline to prevent future painful outbreaks. Follow-up will be considered if lesions persist beyond management strategies discussed. The patient appeared to understand the management plan and agreed to comply with these therapeutic recommendations. Medical Decision Making Based on the patient's history and presentation, the likely diagnosis is Hidradenitis Suppurativa. I opted for doxycycline due to its anti-inflammatory properties and lack of MRSA involvement observed in prior cases. The management plan is focused on both preventing future abscess formation and reducing existing symptoms via topical antibacterial measures and oral antibiotics as ne eded. This approach targets the chronic nature of the condition while minimizing the potential for recurrence. Monitoring of response to this regimen and any subsequent need for adjustment remains crucial. Patient Instructions - Use antibacterial skin wash twice a week. - Take doxycycline as prescribed if lesions recur, for 10 days at a time, with a total of 30 days available. - Monitor for any new or worsening symptoms. - Return for evaluation if symptoms do not improve with treatment. Dermatology eval if lesions dont resolve with po antibiotics prn need. [facility] Medical History (Updated 01/26/25 @ 14:08 by Damaris Duran MD) Hidradenitis suppurativa Right bundle branch block S/P angiogram of extremity Esophagitis Hiatal hernia Schatzki's ring GERD (gastroesophageal reflux disease) Concussion with brief LOC Kidney stones Hypertension Surgical History (Updated 06/09/22 @ 12:09 by Юлия Crawford RN) H/O endoscopy H/O knee surgery H/O colonoscopy Social History Patient Tobacco Use Status: Former Tobacco user Tobacco use type: Cigarette Physical Exam Vital Signs: Last Vital Signs Pulse 111 H 01/26/25 10:10 BP 154/84 H 01/26/25 10:10 Pulse Ox 98 01/26/25 10:10 Oxygen Delivery Method Room Air 01/26/25 10:10 BMI result Body Mass Index 34.2 Assessment & Plan Assessment & Plan (1) Hidradenitis suppurativa: Code(s): L73.2 - Hidradenitis suppurativa Category: Medical Plan: as above Medications: New doxycycline hyclate 100 mg PO BID 60 caps 1RF 30 days Coding Level of Care Code New Pt Level 3 (29904) Diagnoses Hidradenitis suppurativa L73.2
[2025-01-26 10:10] VITALS: BP 154/84; PULSE 111; O2SAT 98; BMI 34.2
--- OUTSIDE RECORDS SUMMARY | 2025-01-26 11:57 | XMS_ITS | Patient Health Record ---
Author Organization Juma Pryor MD Address [address] [place], [place] [address] Care Team Providers Care Case Technician Name Role Phone Juma Pryor Primary Care Provider Allergies No Known Allergies Results Component Value Reference Range Notes UA ClnCatch+Micro w/rflx Cul t (Not yet reviewed by provider) Interpretation:02-02-2025 Performing Lab:[facility], [address] [place] [phone] Notes/Report: Urine, Clean Catch Color Urine Dark Yellow Appearance Urine Clear PH 5.5 5.0-9.0 Glucose Urine UA Negative Negative mg/dL Urine Blood Trace Negative Specific [place] - Urine 1.025 1.005-1.025 Urine Protein Negative [...] ff Reviewed date:01/09/2025 05:12:29 PM Interpretation: Performing Lab:[facility], [address] [place] [phone] Notes/Report: White Blood Count 9.2 4.8-10.8 X10*3/uL [...] 0.0-0.2 /100WBC Neutrophils Absolute Auto 4.6 2.0-8.3 x10*3/uL Imm Gran Abs Auto 0.07 0.00-0.03 X10*3/uL Lymphocytes Absolute Auto 3.0 1.2-4.9 X10*3/uL Monocytes Absolute Auto 0.8 0.1-1.2 X10*3/uL Eosinophils Absolute Auto 0.7 0.0-0.4 X10*3/uL Basophils Absolute Auto 0.1 0.0-0.2 X10*3/uL NRBC Abs Auto 0.000 0.0-0.012 X10*3/uL Comprehensive [place]. Panel Fa st Reviewed date:01/10/2025 01:05:31 PM Interpretation: Performing Lab:[facility], [address] [place] [phone] Notes/Report: Sodium 143 135-145 mmol/L Potassium 4.1 [...] Panel Reviewed date:01/09/2025 12:40:57 PM Interpretation: Performing Lab:[address] [address] Notes/Report: Triglycerides 107 <150 mg/dL Desirable Triglyceride: [...] (Free>4and<10) Reviewed date:01/09/2025 12:35:02 PM Interpretation: Performing Lab:[address] [address] Notes/Report: PSA,Total (Free>4and<10) 1.30 0.00-4.00 ng/mL A [...] t Reviewed date:11/30/2024 12:16:43 PM Interpretation: Performing Lab:[facility], [address] [place] [phone] Notes/Report: Urine, Clean Catch Color Urine Dark Yellow Appearance Urine Clear PH 6.0 5.0-9.0 Glucose Urine UA Negative Negative mg/dL Urine Blood Negative Negative Specific [place] - Urine 1.025 1.005-1.025 Urine Protein Trace Neg-Trace mg/dL Urine Ketones Trace Negative mg/dL Nitrite Urine Positive Negative Leukocyte Esterase Urine Negative Negative RBC Urine 0-2 0-2 /HPF WBC Urine 0-5 0-5 /HPF Squamous Epithelial Cell Urine 0-2 0-2 /HPF Bacteria Urine None Seen None Seen Hyaline Casts Urine 0-2 0-2 /LPF Urine Culture Reviewed date:12/01/2024 10:06:31 AM Interpretation: Performing Lab:[facility], [address] [place] [phone] Notes/Report: Urine Culture No growth. FL barium swallow Reviewed date:01/09/2025 05:04:37 PM Interpretation: Performing Lab: Notes/Report: [address] [address] Fluoroscopy Report Signed Patient: Cande Lozano MR#: [id number] : 1970 Acct:[id number] Age/Sex: 54 / M ADM Date: 01/09/25 Loc: [facility] Attending Dr: Oliver Monique MD Ordering Physician: Oliver Monique MD Date of Service: 01/09/25 Procedure(s): FL barium swallow Accession Number(s): [id number] cc: Juma Pryor MD; Oliver Monique MD Reason for Exam: WITH TABLET, DYSPHAGIA EXAMINATION: XR BARIUM SWALLOW CLINICAL INFORMATION: Dysphagia COMPARISON: None available. TECHNIQUE: Routine upright barium swallow with thick barium, barium coated saltine crackers, barium tablet and thin barium in prone lying position was performed. FINDINGS: Following oral administration of thick barium in upright view and different positions there is normal propagation of bolus from the oral cavity through the pharynx, esophagus into stomach without obstruction narrowing. A prominent cricoesophageal sphincter is noted without obstruction. No barium retention seen in the valleculae or piriform sinuses. No laryngeal penetration or aspiration. On oral administration of saltine crackers with barium paste there is normal oral mastication and propagation of bolus from the oral cavity through the pharynx, esophagus into stomach. On oral administration of barium tablet there is spontaneous passage of tablet from the oral cavity, pharynx, esophagus into stomach. No obstruction seen. On oral administration of thin barium in prone lying position there is good distention of esophagus without intraluminal filling defect. No extrinsic compression seen. There is a small to moderate size hiatal hernia with mild gastroesophageal reflux. FLUOROSCOPY TIME: 2 minute 51 seconds DOSE AREA PRODUCT: 2910 uGy-m2 (microgray-meter squared) FL/FL barium swallow IMPRESSION: Small to moderate size hiatal hernia with mild gastroesophageal reflux. Prominent cricoesophageal sphincter but no obstruction seen.. Electronically signed by: Aris Stallings MD 01/09/2025 02:06 PM EDT Dictated By: Aris Stallings MD Signed By: <Electronically signed by Aris Stallings MD in OV> 01/09/25 1406 DD/ 0745 TD/TT: 01/09/25 0805 [address] Continuous Churn: [place] [address] Fluoroscopy Report Signed Patient: Brina Lozano MR#: [id number] : 1970 Acct:[id number] Age/Sex: 54 / M ADM Date: 01/09/25 Loc: HO.XRAY Attending Dr: Oliver Monique MD Ordering Physician: Oliver Monique MD Date of Service: 01/09/25 Procedure(s): FL bar ium swallow Accession Number(s): [id number] cc: Juma Pryor MD; Oliver Monique MD Reason for Exam: WIT H TABLET, DYSPHAGIA EXAMINATION: XR BARIUM SWALLOW CLINICAL INFORMATION: Dysphagia COMPARISON: None available. TECHNIQUE: Routine upright mamta um swallow with thick barium, barium coated saltine crackers, barium tab let and thin barium in prone lying position was performed. FINDINGS: Following oral administration of thick barium in upright view and different positions there is normal propagation of bolus from the oral cavity through the pharynx, esophagus into stomach without obstruction narrowing. A promine nt cricoesophageal sphincter is noted without obstruction. No mamta um retention seen in the valleculae or piriform sinuses. No laryngea l penetration or aspiration. On oral administrati on of saltine crackers with barium paste there is normal oral masticat ion and propagation of bolus from the oral cavity through the pharynx, esophagus into stomach. On oral administration of barium tablet there is spontaneous passage of tablet from the oral cavity, pharynx, esophagus into stomach. No obstruction seen. On oral administrati on of thin barium in prone lying position there is good distention of esophagus without intraluminal filling defect. No extrinsic compressio n seen. There is a small to moderate size hiatal hernia with mild gastroesophageal reflux. FLUOROSCOPY TIME: 2 minute 51 seconds DOSE AREA PRODUCT: 2910 uGy-m2 (microgray-meter squared) F L/FL barium swallow IMPRESSION: Small to moderate si ze hiatal hernia with mild gastroesophageal reflux. Prominent cricoesophageal sphincter but no obstruction seen.. Electronically lino d by: Aris Stallings MD 01/09/2025 02:06 PM EDT RP Dictated By: Mr haleigh Stallings MD Signed By: <Electronically signed by Aris Stallings MD in OV> 01/09/25 1406 DD/ 0745 TD/TT: 01/09/25 0805 [address] Continuous Churn: HOANG Reason For Referral Reason Esophageal stricture Diagnosis 1 Esophageal stricture (K22.2) Referral Organization Juma Pryor MD Referring Provider First Name Juma Referring Provider Last Name Konstantin Referring Provider Speciality Internal M edicine Referred Provider Oliver Monique Referred Provider Specialty Gastroentero logy General Notes Kate Hernandez 0 08/28/2024 10:40:42 AM > referral info faxed, Kate Hernandez 09/22/2024 01:12:51 PM >was told patient is aware of appt Referral Priority Routine Referral Appointment Date 12/05/2024 Reason Fractures ribs ple ase eval and treat Diagnosis 1 Rib fractures (S22.3 9XA) Referral Organization Juma Pryor MD Referring Provider First Name Juma Referring Provider Last Name Konstantin Referring Provider Speciality Internal M edicine Referred Provider [facility] Referred Provider Specialty Unknown General Notes Kate Hernandez 0 11/17/2024 01:06:03 PM >referral info faxed Referral Priority Routine Referral Appointment Date 12/08/2024 Reason abscess Axilla Diagnosis 1 Abscess (L02.91) Referral Organization Juma Pryor MD Referring Provider First Name Juma Referring Provider Last Name Konstantin Referring Provider Speciality Internal edicine Referred Provider FIGUEROA JAIMES Referred Provider Specialty Infectious D isease General Notes Kate Hernandez 1 11:32:10 AM >ins referral faxed [phone] Annette 01/19/2025 01:08:00 PM > had to leave a message, Kate Hernandez 01/22/2025 11:04:34 AM >patient is aware of appt Referral Priority Routine Referral Appointment Date 01/26/2025 Medications Medication SIG (Take, Route, Frequency, Duration) [...] a day for 10 days 07/17/2024 Not-Taking Ibuprofen 200 MG 1 tablet with food or milk as needed Orally Three times a day Active Doxycycline Hyclate 100 MG 1 capsule Orally Once a day for 10 day(s) 03/16/2024 Not-Taking Acetaminophen 500 MG 1 capsule as needed Orally every 6 hrs Active Benadryl Allergy 25 MG 1 tablet at bedtime as needed Orally Once a day for 30 day(s) Not-Taking Omeprazole 20 MG 1 capsule Orally Once a day for 30 days Active Tylenol 325 MG 2 tablet as needed Orally every 4 hrs Not-Taking PARoxetine HCl 20 MG 1 tablet in the morning Orally Once a day for 30 days 05/29/2024 Active Tamsulosin HCl 0.4 MG 1 capsule Orally twice a day for 10 days 01/15/2025 Active Gabapentin 300 MG 1 capsule Orally Three times a day for 30 days Active Immunizations Vaccine Route Administration Date Status Comme nts Fluarix Quadrivalent Unknown 03/11/2016 Administered [facility] Fluarix Quadrivalent IM Intramuscular 05/18/2017 Administered Fluarix Quadrivalent IM Intramuscular 12/13/2018 Administered pt was given th e vaccine while inpatient at [facility]. Fluarix Quadrivalent IM Intramuscular 12/12/2021 Administered SARS-COV-2 [...] Problem Status W/U Status Risk Notes Problem 067011091 Reflux esophagit is (K21.00) Active confirmed Problem Gout attack (139621769) Gout attack (M10.9) Active confirmed Problem Atherosclerosis of abdominal aorta (694083994) Atherosclerosis of abdominal aorta (I70.0) Active confirmed Problem Chronic sinusitis (97076108) Chronic sinusitis, unspecified (J32.9) Active confirmed Problem Kidney stone (92246826) Kidney stone (N20.0) Active confirmed Problem 41615825 Essential hypertension (I10) Active confirmed Problem 19675800 RBBB (I45.10) Active confirmed Problem 45079018 Hiatal hernia (K44.9) Active confirmed Problem 184905256 History of kidne y stones (Z87.442) Active confirmed Problem 795680430 Family history o f colon cancer (Z80.0) Active confirmed Problem 49944246 Dysthymia (F34.1) Active confirmed Problem Esophageal stricture (42112467) Esophageal stricture (K22.2) Active confirmed Problem 842398000 Polyp of descending colon, unspecified type (D12.4) Active confirmed Problem Computed tomography result abnormal (095763736) Abnormal CAT scan (R93.89) Active confirmed Problem 212848069 Abnormal compute d tomography angiography (CTA) (R93.89) Active confirmed Vital Signs Blood pressure diastolic 80 mm Hg 01/15/2025 adele ght is up 6 pounds since 01-05-25 Height 71 in 01/15/2025 weight is up 6 pounds since 01-05-25 Blood pressure systolic 114 mm Hg 01/15/2025 weig ht is up 6 pounds since 01-05-25 Weight 243 lbs 01/15/2025 weight is up 6 pounds since 01-05-25 BMI 33.89 kg/m2 01/15/2025 weight is up 6 pounds since 01-05-25 Encounters Encounter Location Date Provider Diagnosis Juma Pryor MD [address] [place] [id number] 01/09/2025 Juma Pryor Blood tests for rout ine general physical examination Z00.00 and Essential hypertension I10 Juma Pryor MD [address] [place] [address] [id number] 02/28/2024 Juma Pryor Essential hypertensi on I10 Juma Pryor MD [address] [place] [address] [id number] 03/16/2024 Juma Pryor Acute cellulitis L03 .90 and Essential hypertension I10 Juma Pryor MD [address] [place] [address] [id number] 05/29/2024 Juma Pryor Kidney stone N20.0 ; Essential hypertension I10 and Dysthymia F34.1 Juma Pryor MD [address] [place] [id number] 07/17/2024 Juma Pryor Gout attack M10.9 Juma Pryor MD [address] [place] [address] [id number] 08/28/2024 Juma Pryor Esophageal stricture K22.2 and Dysthymia F34.1 Juma Pryor MD [address] [place] [id number] 11/17/2024 Juma Pryor Atherosclerosis of abdominal aorta I70.0 ; Rib fractures S22.39XA and Abnormal CAT scan R93.89 Juma Pryor MD [address] [place] [address] [id number] 11/30/2024 Juma Pryor Rib fractures S22.39 XA and Polyuria R35.89 Juma Pryor MD [address] [place] [address] [id number] 01/05/2025 Juma Pryor Rotator cuff dysfunction, right M67.911 ; Rib fractures S22.39XA and Abscess L02.91 Juma Pryor MD [address] [place] [address] [id number] 01/15/2025 Juma Pryor History of kidney stones Z87.442 ; Adult general medical examination Z00.00 ; Kidney stone N20.0 ; Reflux esophagitis K21.00 ; Essential hypertension I10 and Depression screening Z13.31 Juma Pryor MD [address] [place] [address] [id number] 04/04/2024 Juma Pryor Essential hypertensi on I10 Juma Pryor MD [address] [place] [address] [id number] 09/28/2024 Juma Pryor MD [address] [place] [address] [id number] 11/16/2024 Juma Pryor MD [address] [place] [address] [id number] 11/16/2024 Juma Pryor MD [address] [place] [address] [id number] 11/23/2024 Juma Pryor MD [address] [place] [address] [id number] 11/27/2024 Juma Pryor Chronic sinusitis, unspecified J32.9 Juma Pryor MD [address] [place] [address] [id number] 12/05/2024 Juma Pryor Rib fractures S22.39 XA Juma Pryor MD [address] [place] [address] [id number] 12/07/2024 Juma Pryor Rib fractures S22.39 XA Juma Pryor MD [address] [place] [address] [id number] 12/29/2024 Juma Pryor MD [address] [place] [address] [id number] 01/08/2025 Juma Pryor Rotator cuff dysfunction, right M67.911 Juma Pryor MD [address] [id number] 01/18/2025 Juma Pryor Assessments Encounter Date Diagnosis (ICD Code) Assessment Notes Treatment Notes Treatment Clinical Notes Section Notes 01/09/2025 Blood tests for routine general physical examination (ICD-10 - Z00.00) 02/28/2024 Essential hypertension (ICD-10 - I10) is [...] - S22.39XA) refer to trauma center at [facility]/ need er visit from [facility]/ request for records will be sent 11/30/2024 [...] 11/30/2024 Polyuria (ICD-10 - R35.89) lab pending 01/05/2025 Rotator cuff dysfunction, right (ICD-10 - M67.911) MRI order faxed to [facility] 01/05/2025 Rib fractures (ICD-10 - S22.39XA) [facility] 01/15/2025 History of kidney stones (ICD-10 - Z87.442) 01/15/2025 Adult general medical examination (ICD-10 - Z00.00) labs reviewed and discussed with patient 04/04/2024 Essential hypertension (ICD-10 - I10) 11/27/2024 Chronic sinusitis, unspecified (ICD-10 - J32.9) 12/05/2024 Rib fractures (ICD-10 - S22.39XA) 12/07/2024 Rib fractures (ICD-10 - S22.39XA) 01/08/2025 Rotator cuff dysfunction, right (ICD-10 - M67.911) 01/09/2025 Essential hypertension (ICD-10 - I10) 03/16/2024 Essential hypertension (ICD-10 - I10) 05/29/2024 Essential hypertension (ICD-10 - I10) doing well, will continue current regiment 08/28/2024 Dysthymia (ICD-10 - F34.1) doing great on meds 11/17/2024 Abnormal CAT scan (ICD-10 - R93.89) repeat sinus ct in 6 weeks order faxed to [facility] 01/05/2025 Abscess (ICD-10 - L02.91) referral to dr jaimes for recurring abscess 01/15/2025 Kidney stone (ICD-10 - N20.0) patient verbalized understanding of medication and directions for use 05/29/2024 Dysthymia (ICD-10 - F34.1) not doing well. 01/15/2025 Reflux esophagitis (ICD-10 - K21.00) stable, [...] CHEST 2 VIEW PA & LAT 02/25/2018 XR ribs RT min 3V w CXR1V 11/30/2024 XR ribs RT 2V 12/05/2024 UA ClnCatch+Micro w/rflx Cult 01/09/2025 Future Test Test Name Order Date CT sinus w con 01/05/2025 Next Appt Details Provider Name:Juma Betancur ier, 02/02/2025 07:45:00 AM, [address] [place] [address], [address] [place] [address], [phone], Provider Name:Juma Adams Gypsy ier, 04/19/2025 07:45:00 AM, [address] [place] [address], [address] [facility], [place], [place], [phone], Provider Name:Juma Betancur ier, 01/10/2026 07:00:00 AM, [address] [place] [address], [address] [place] [address], [id number], Provider Name:Juma Betancur ier, 01/17/2026 08:00:00 AM, [address] [place] [address], [address], [phone], Insurance Providers Payer Name Payer Address Payer Phone Subscriber Number Group Number Insured Name Patient Relationship to Insured Coverage Start Date Coverage End Date [employer] [address] [place], [place] [id number] CANDE LOZANO Self - patient is the [...]
--- OUTSIDE RECORDS SUMMARY | 2025-01-26 11:58 | XMS_ITS | Patient Health Record ---
Author Organization [facility] Address [address] [place] [address] Care Team Providers Care Utilization Reviewer Name Role Phone Juma Pryor MD Primary Care Provider Oliver Stahl [phone] Allergies Allergen (clinical drug ingredient) Drug/Non Drug Allergy documented on EMR Reaction Allergy Type Onset Date Status acetaminophen / oxycodone Percocet N/V Drug Allergy Active morphine Morphine Sulfate N/V Drug Allergy Active Results Component Value Reference Range Notes FL barium swallow (Not yet r eviewed by provider) Interpretation: Performing Lab: Notes/Report: [address] [address] Fluoroscopy Report Signed Patient: Cande Lozano MR#: [id number] : 1970 Acct:[id number] Age/Sex: 54 / M ADM Date: 01/09/25 [facility]: Oliver Malhotra MD Ordering Physician: Oliver Malhotra MD Date of Service: 01/09/25 Procedure(s): FL barium swallow Accession Number(s): [id number] cc: Juma Pryor MD; Oliver Malhotra MD Reason for Exam: WITH TABLET, DYSPHAGIA [...] 01/09/2025 02:06 PM EDT RP Dictated By: Aris Stallings MD Signed By: <Electronically signed by Aris Stallings MD in OV> 01/09/25 1406 DD/ 0745 TD/TT: 01/09/25 0805 Box Tender: HOANG Reason For Referral No Information Medications Medication SIG (Take, Route, Frequency, Duration) Notes Start Date End Date Status PARoxetine HCl 20 MG TAKE 1 TABLET BY MO UT ONCE DAILY IN THE MORNING Oral; Duration: [...] Status Risk Notes Problem Colon cancer screening (211728341) Colon cancer screening (Z12.11) Active confirmed Problem Screening for malignant neoplasm of colon (323663920) Encounter for screening for malignant neoplasm of colon (Z12.11) Active confirmed Problem History of adenomatous polyp of colon (560051960) History of adenomatous polyp of colon (Z86.010) Active confirmed Problem Screening for malignant neoplasm of rectum (725391525) Encounter for screening for malignant neoplasm of rectum (Z12.12) Active confirmed Problem Dysphagia (98236201) Dysphagia (R13.10) Active confirmed Problem Preprocedural examination (951789229761501) Preprocedural examination (Z01.818) Active confirmed Problem Gastroesophageal reflux disease (906582298) Gastroesophageal reflux disease, esophagitis presence not specified (K21.9) Active confirmed Problem Esophageal ring (69353647) Esophageal ring (K22.2) Active confirmed Problem Family history of colorectal cancer (1052236498907) Family history of colorectal cancer (Z80.0) Active confirmed Problem Esophageal dysphagia (74104227) Esophageal dysphagia (R13.14) Active confirmed Vital Signs Temperature 98.2 degrees Fahrenheit 12/05/2024 Blood pressure diastolic 01 mm Hg 12/05/2024 Height 72 in 12/05/2024 Blood pressure systolic 001 mm Hg 12/05/2024 Weight 234.8 lbs 12/05/2024 BMI 31.84 kg/m2 12/05/2024 Encounters Encounter Location Date Provider Diagnosis [facility] [address] [facility] [address] [place] [address] 12/05/2024 Oliver Malhotra Dysphagia R13.10 ; Encounter [...] an upper endoscopy with balloon dilation in [place] with a subsequent perforation and prolonged hospital [...] an upper endoscopy with balloon dilation in [place] with a subsequent perforation and prolonged hospital [...] an upper endoscopy with balloon dilation in [place] with a subsequent perforation and prolonged hospital [...] Name Order Date XR BARIUM SWALLOW-ESOPHAGUS 12/05/2024 FL barium swallow 01/09/2025 Future Test Test Name Order Date UPPER GI ENDOSCOPY BALLOOON DILATION OF ESOPH 06/23/2016 COLONOSCOPY 06/23/2016 COLONOSCOPY 06/09/2022 Insurance Providers Payer Name Payer Address Payer Phone Subscriber Number Group Number Insured Name Patient Relationship to Insured Coverage Start Date Coverage End Date [facility] [address] [place] [address] [id number] CANDE LOZANO Self - patient is the insured Medical (General) History Medical History History ICD Code Kidney stones Denies [place],DM,CVA,Lung disease,renal dise ase GERD- UGI in 2011 [...]
--- OUTSIDE RECORDS SUMMARY | 2025-01-26 11:59 | XMS_ITS | Clinical Summary ---
Author Organization [facility] Address [address] [place] [address] Care Team Providers Care Batch Plant Operator Name Role Phone Unavailable Primary Care Provider [...] of 2) 06/07/2019 COVID-19 Vaccine ( - 2024-2 6 season) 2024 Influenza (#1) 2024 RSV (1 - 1-dose 75+ series) 2044 HPV Vaccine (No Doses Required) Completed Hep A Aged Out No longer eligi ble based on patient's age to complete this topic Hib Aged Out No longer eligi ble based on patient's age to complete this topic Meningococcal ACWY Aged Out No longer eligible based on patient's age to complete this topic
--- OUTSIDE RECORDS SUMMARY | 2025-01-26 11:59 | XMS_ITS | Data Portability ---
Author Organization [facility] [address] Address [address] [place] [address] Assessment No assessment recorded. Plan of Treatment [...] Out Template DOT completed Alessandra Carias SHIRA Lingoingress 03/04/2024 13:24:14 Imaging Results None recorded. Procedure [...] ICD10 Code Diagnosis IMO Codes Diagnosis Note [id number] [address] [place] [address] 11/14/2016 10:25:05 11/14/2016 11:56:51 [id number] [address] [place] [address] 09/25/2018 14:36:27 09/25/2018 15:07:15 [id number] SHIRA Noe [address] [place] [address] 03/04/2024 13:02:59 03/04/2024 13:25:58 History and physical examination, occupation 401066557 Z02.1 Health Concerns Section Related Observation LastModified by Organization Detai ls LastModified Time None Recorded Concern Status LastModified by Organization Details LastModified Time None Recorded Advance Directives Directive None Recorded Payers Insurance Date Sequence Insurance Name Policy Number Policy Hearn Covered Member ID Hearn Member ID Guarantor Name 03/04/2024 [employer]-ESCREEN Marek Traylor [facility] Marek Traylor
--- OUTSIDE RECORDS SUMMARY | 2025-01-26 12:00 | XMS_ITS | Clinical Summary ---
Author Organization [facility] Address [address] [facility] [address] [place] [address] Phone Care Team Providers Care Manufacturing Advisor Name Role Phone Juma Pryor MD Primary Care Provider Allergies Active Allergy Reactions Criticality Noted Date Comments Sulfa (Sulfonamide Antibiotics) Hives 03/16 Medications omeprazole magnesium (ACID POLICE ACADEMY PROGRAM COORDINATOR, OMEPRAZOLE,) 20 mg CpDR 08/13/2018 Active Social [...] on patient's age to complete this topic IPV VACCINES Aged Out No longer eligi ble based on patient's age to complete this topic MENINGOCOCCAL VACCINES (ACWY) Aged Out No longer eligible based on patient's age to complete this topic MENINGOCOCCAL VACCINES (B) Aged Out N o longer eligible based on patient's age to complete this topic Medical Devices Not on file Insurance [facility] [place] [address] [place] [address] [address] [place] [address] PPO EPO [facility] PPO EPO [employer] [facility] [place] [address] [place] [address] PPO EPO [employer] [facility] PPO EPO [employer] [facility] [place] [address] [place] [address] PPO EPO Care Teams Manufacturing Advisor Relationship Specialty Start Date End Date Juma Pryor MD [address] [place] [address] [place] [address] PCP - General Internal Medicine 04/09/19 Additional Source Comments The information contained in this document represents components of the legal health record. It is not the complete legal health record.[facility]
== END 2025-01-26 10:46 | disposition home or self-care (01) ==
LOC: HO.HID 10:03
PROVIDERS: PCP Internal Medicine; Visit Provider Internal Medicine
DX: L73.2 Hidradenitis suppurativa (principal)
CPT/HCPCS: 99203

== ENCOUNTER 2025-02-01 12:23 | Outpatient (REF) | payer BC, SELFPAY ==
--- OUTSIDE RECORDS SUMMARY | 2025-01-26 23:59 | XMS_ITS | Continuity of Care Document ---
Author Organization [facility] Address [address] [place] [address] [address] [place] [address]- Care Team Providers Care Pulp Maker Name Role Phone Konstantin MASON, Juma Primary Care Physician [phone] Encounter [facility] Date(s): 01/19/25 - 01/26/25 [facility] [address] [place], [place] [address] Attending Physician: Shola Storm DO Encounter Type: Office Visit Allergies, Adverse Reactions, Alerts No Known Allergies Functional Status Functional Status Assessment Assessment Assessment Component Result Effecti ve Disability status [CUBS] I'm Building Capacity - I have an asymptomatic condition controlled by services or medication 01/19/25 Do you need any additional assistance or accommodations during your visit No 01/19/25 Because of a physica l, mental, or emotional condition, do you have difficulty doing errands alone such as visiting a physician's office or shopping No 01/19/25 Difficulty Reading O r Writing No 01/19/25 Difficulty communica ting in usual language No 01/19/25 Do you have serious difficulty walking or climbing stairs No 01/19/25 Do you have difficul ty dressing or bathing No 01/19/25 Are you blind, or do you have serious difficulty seeing, even when wearing glasses No 01/19/25 Are you deaf, or do you have serious difficulty hearing No 01/19/25 Because of a physica l, mental, or emotional condition, do you have serious difficulty concentrating, remembering, or making decisions No 01/19/25 Medications docusate sodium 100 mg oral capsule 1 capsule = 100 mg, By Mouth, Daily, PRN as needed for constipation, # 20 capsule, 0 Refills, Maintenance, 11/17/24 3:36:00 AM EDT, Capsule, Partial fill upon patient request if the prescription is fora schedule II opioid drug. Start Date: 11/17/24 Status: Ordered Medication Dispense Status: Completed Quantity: 20.0 Unit: capsule Total Allowed Fills: 1 Fills Dispensed: 0 doxycycline hyclate 100 mg oral capsule 1 capsule = 100 mg, By Mouth, 2 times a day, # 20 capsule, 0 Refills, Maintenance, 11/17/24 3:26:00 AM EDT, Capsule, Partial fill upon patient request if the prescription is for a schedule II opioid drug. Start Date: 11/17/24 Status: Ordered Medication Dispense Status: Completed Quantity: 20.0 Unit: capsule Total Allowed Fills: 1 Fills Dispensed: 0 gabapentin 100 mg oral capsule 100 mg, 1, capsule, By Mouth, 3 times a day, # 90 capsule, Refills 5, Maintenance, 11/17/24 3:26:00 AM EDT, Partial fill upon patient request if the prescription is for a schedule II opioid drug. Start Date: 11/17/24 Status: Ordered Medication Dispense Status: Completed Quantity: 90.0 Unit: capsule Total Allowed Fills: 1 Fills Dispensed: 0 gabapentin 300 mg oral capsule 300 mg, 1, capsule, By Mouth, 3 times a day, # 90 capsule, Refills 5, Tot. Refills 5, Maintenance, 12/08/24 1:59:00 PM EDT, Route to Pharmacy Electronically, [facility] [address] [place], [place], Partial fill upon patient request if the prescription is for a schedule II opioid drug., 163, cm, 12/08/24 13:32:00 EDT, Height, 94.5, kg, 11/17/24 6:46:00 EDT, Dry Weight Start Date: 12/08/24 Status: Ordered Medication Dispense Status: Completed Quantity: 90.0 Unit: capsule Total Allowed Fills: 6 Fills Dispensed: 0 hydrochlorothiazide-valsartan 12.5 mg-80 mg oral tablet 1 tablet, By Mouth, Daily, # 30 tablet, 0 Refills, Maintenance, 11/17/24 3:25:00 AM EDT, Tablet, Partial fill upon patient request if the prescription is for a schedule II opioid drug. Start Date: 11/17/24 Status: Ordered Medication Dispense Status: Completed Quantity: 30.0 Unit: tablet Total Allowed Fills: 1 Fills Dispensed: 0 methocarbamol 500 mg oral tablet 2 tablet = 1,000 mg, By Mouth, 4 times a day, 0 Refills, Maintenance, 11/17/24 3:26:00 AM EDT, Partial fill upon patient request if the prescription is for a schedule II opioid drug. Start Date: 11/17/24 Status: Ordered Medication Dispense Status: Completed Total Allowed Fills: 1 Fills Dispensed: 0 oxyCODONE 5 mg oral capsule 1 capsule = 5 mg, By Mouth, Every 4 hours, PRN as needed for pain, 0 Refills, Maintenance, 11/17/24 3:25:00 AM EDT, Capsule, Partial fill upon patient request if the prescription is for a schedule II opioid drug. Start Date: 11/17/24 Status: Ordered Medication Dispense Status: Completed Total Allowed Fills: 1 Fills Dispensed: 0 PARoxetine 20 mg oral tablet 20 mg, 1, tablet, By Mouth, Daily, # 30 tablet, Refills 0, Maintenance, 11/17/24 3:25:00 AM EDT, Partial fill upon patient request if the prescription is for a schedule II opioid drug. Start Date: 11/17/24 Status: Ordered Medication Dispense Status: Completed Quantity: 30.0 Unit: tablet Total Allowed Fills: 1 Fills Dispensed: 0 Senna 8.6 mg oral tablet 8.6 mg, 1, tablet, By Mouth, Daily at bedtime, Refills 0, Maintenance, 11/17/24 3:35:00 AM EDT, Partial fill upon patient request if the prescription is for a schedule II opioid drug. Start Date: 11/17/24 Status: Ordered Medication Dispense Status: Completed Total Allowed Fills: 1 Fills Dispensed: 0 Tylenol Extra Strength 500 mg oral tablet 2 tablet = 1,000 mg, By Mouth, 2 times a day, PRN as needed for pain, 0 Refills, Maintenance, 11/17/24 3:34:00 AM EDT, Tablet, Partial fill upon patient request if the prescription is for a schedule IIopioid drug. Start Date: 11/17/24 Status: Ordered Medication Dispense Status: Completed Total Allowed Fills: 1 Fills Dispensed: 0 Problem List Condition Confirmation Course Effective Dates Status Health St atus Informant Obese class II Confirmed Active Vital Signs Most recent to oldest [Reference Range]: 1 Height 163 cm (01/19/25 8:55 AM) Oxygen Saturation [94-100 %] 100 % (01/19/25 8:55 AM) Pulse Rate [55-90 bpm] 98 bpm *H* (01/19/25 8:55 AM) Blood Pressure [90-138/55-84 mm Hg] 153/ 70mm Hg *H* (01/19/25 8:55 AM) Temperature [96.8-100.4 DegF] 97.7 DegF (01/19/25 8:55 AM) Mode of Delivery (Oxygen) Room air (01/19/25 8:55 AM) Blood pressure sites Arm, left (01/19/25 8:55 AM) Temperature Route Temporal (01/19/25 8:55 AM) Social History Social History Type Response Smoking Status Former smoker, quit more than 30 days ago entered on: 11/17/24 Sex Sex Representation Male (finding) Note * Cydney Gupta: PERFORM Event Display: Patient Education/Instruction Authored Date: [id number] Ambulatory Adult Visit Summary [facility] [address] [place] [id number] Name: CANDE LOZANO : 1970?? Visit: 01/19/2025 08:53?? Ambulatory Visit Instructions ?? Your Care Team Primary Care Provider Juma Pryor MD? This Visit Provider Shola Storm DO Vitals Signs Temperature: 97.7 DegF Height: 163 cm Pulse Rate:??98 bpm??High ?? Systolic Blood Pressure:??153 mm Hg??High ?? Diastolic Blood Pressure: 70 mm Hg ?? Oxygen Saturation: 100 % ?? What to do next Scheduled Follow-Up Appointments Wednesday 2:30 PM EST ?? Type: Physical Therapy Return With: Ava Stovall [facility] [address] [address]- Status: Pending Wednesday 8:00 AM EST ?? Type: Physical Therapy Return With: Ava Stovall [facility] [place] [place] [address]- Status: Pending Medications The list below reflects the information in our records and provided by you today along with any changes made during this visit. Please continue your medications until treatment is completed or stopped by your provider. If this is different from the information you have or there are other questions,please contact the prescribing provider. What How Much When Instructions Unchanged Acetaminophen (Tylenol Extra Strength 500 mg oral tablet) 2 tab(s) Oral Twice a day as needed for as needed for pain Unchanged Docusate (docusate sodium 100 mg oral capsule) 1 capsule Oral Daily as needed for as needed for constipation Unchanged Doxycycline (doxycycline hyclate 100 mg oral capsule) 1 capsule Oral Twice a day Unchanged Gabapentin (gabapentin 100 mg oral capsule) 1 capsule Oral 3 times a day Unchanged Gabapentin (gabapentin 300 mg oral capsule) 1 capsule Oral 3 times a day Ordering Physician: Eliza MASON, Gautam Reyes Unchanged Hydrochlorothiazide-Valsartan (hydrochlorothiazide-valsartan 12.5 mg- 80 mg oral tablet) 1 tab(s) Oral Daily Unchanged Methocarbamol (methocarbamol 500 mg oral tablet) 2 tab(s) Oral 4 times a day Unchanged Oxycodone (oxyCODONE 5 mg oral capsule) 1 capsule Oral Every 4 hours as needed for as needed for pain Unchanged Paroxetine (PARoxetine 20 mg oral tablet) 1 tab(s) Oral Daily Unchanged Senna (Senna 8.6 mg oral tablet) 1 tab(s) Oral Daily at Bedtime Medications and Immunizations Administered Medications Given During Visit No medications given during this visit.?? Allergies (NKA means No Known Allergies) NKA Common Emergency Awareness Tips IS IT A STROKE? Act FAST and Check for these signs: FACE Does the face look uneven? ARM Does one arm drift down? SPEECH Does their speech sound strange? TIME Call at any sign of stroke ?? Heart Attack Signs Chest discomfort: Most heart attacks involve discomfort in the center of the chest and lasts more than a few minutes, or goes away and comes back. It can feel like uncomfortable pressure, squeezing, fullness or pain. Discomfort in upper body: Symptoms can include pain or discomfort in one or both arms, back, neck, jaw or stomach. Shortness of breath: With or without discomfort. Other signs: Breaking out in a cold sweat, nausea, or lightheaded. Remember, MINUTES DO MATTER. If you experience any of these heart attack warning signs, call to get immediate medical attention! ?? Smoking can increase your chances of developing chronic health problems and can cause harmful effects to other family members in your house. If you smoke, you are strongly encouraged to quit. Please call [facility] Link at [phone] or [phone] ([phone]) or log in to [email or web address] for referrals to smoking cessation programs. ?? The National Suicide Prevention Hotline is available 05/10 if you or someone you know needs to find a reason to keep living. By calling 2-133-207-Paymo (2443) you'll be connected to a skilled, trained counselor at a crisis center in your area. [facility] Portal You can view and manage your care through the patient portal or by using a health care ranjana of your choosing. wiseri is a website that allows you to securely view your medical information including your hospital discharge summary, office visit summaries, medications and follow-up visits. You can also request appointments, renew medications, and request access to your medical information using a health care ranjana of your choosing, or just ask a question. You can enroll at [email or web address] or register during your next office visit. [facility], in keeping with [facility] guidance, no longer requires face masks for staff, patientsor visitors in most situations. Similiar to time spent indoors at other locations, there is the chance that you were exposed to repiratory viruses during your time with us (such as flu or COVID-19). If you develop symptoms concerning for a viral respiratory infection, please seek testing (and treatment if indicated) from your medical provider or home test kit. ?? Disclaimer: The information provided is of a general nature and is intended to be used in conjunction with the recommendations and advice of your health care practitioner. Every effort has been made to ensure that the information provided is accurate and complete at the time it is provided to you however, as your needs change, or, as new information becomes available, different or additional instructions may be required. ?? If you have questions, please consult with your primary care provider or pharmacist, as appropriate. This information is not intended to serve as substitution for assessment and evaluation by a qualified health care provider. If you do not have a primary care provider, you may find a [facility] provider by calling [facility]its [facility] at [phone]. Patient Care team information Care Team Personnel Name: Juma Pryor MD Position: Reference Physician Member Role: PCP Address: [address] [place] [address] Juma Pryor MD [place], [place] [address] Telecom: [phone] Care Team Related Persons Name: LIZ LOZANO Insurance Providers Guarantor name: CANDE LOZANO Health Plan Information #: 1 Payer: HAUL O Payer Identifier: NA Member Number: [id number] Group Number: [id number] Subscriber Identifier: [id number] Relationship to Subscriber: self Coverage Type: NA Coverage Verification Date: Telecom: NA Address:
--- OUTSIDE RECORDS SUMMARY | 2025-01-26 23:59 | XMS_ITS | Continuity of Care Document ---
Author Organization [facility] Address [address] [place] [address] [address] [place] [address]- Care Team Providers Care Med Specialist Name Role Phone Konstantin MASON, Juma Primary Care Physician [phone] Encounter [facility] Date(s): 12/27/24 - 01/26/[address] [place], [place] [address] Encounter Type: Triage Allergies, Adverse Reactions, Alerts No Known Allergies Medications docusate sodium 100 mg oral capsule [...] 1:59:00 PM EDT, Route to Pharmacy Electronically, [facility] [address] [place] [address], Partial fill upon patient request if the [...] atus Informant Obese class II Confirmed Active Social History Social History Type Response Smoking Status Former smoker, quit more than 30 days ago entered on: 11/17/24 Sex Sex Representation Male (finding) Patient Care team information Care Team Personnel Name: Juma Pryor MD Position: Reference Physician Member Role: PCP Address: [address] [place] [address] Juma Pryor MD [place], [place] [address] Telecom: [phone] Care Team Related Persons Name: LIZ LOZANO Insurance Providers Guarantor name: CANDE LZOANO Health Plan Information #: 1 Payer: [employer] CROSS PPO Payer Identifier: NA Member Number: [id number] Group Number: [id number] Subscriber Identifier: NA Relationship to Subscriber: self Coverage Type: NA Coverage Verification Date: NA Telecom: NA Address: NA
[2025-02-01 12:39] LABS: Appearance Urine Clear; Glucose Urine UA Negative (Negative); PH 5.5 (5.0-9.0); Specific Gravity - Urine 1.025 (1.005-1.025)
--- OUTSIDE RECORDS SUMMARY | 2025-02-01 18:22 | XMS_ITS | Data Portability ---
Author Organization [facility] [employer] [facility] [address] [place] [address] Assessment No assessment recorded. Plan of Treatment [...] Out Template DOT completed Alessandra Carias [facility] [employer] 03/04/2024 13:24:14 Imaging Results None recorded. Procedure [...] ICD10 Code Diagnosis IMO Codes Diagnosis Note [id number] [address] [place] [address] 11/14/2016 10:25:05 11/14/2016 11:56:51 [id number] [address] [place] [address] 09/25/2018 14:36:27 09/25/2018 15:07:15 [id number] SHIRA Noe [address] [place] [address] 03/04/2024 13:02:59 03/04/2024 13:25:58 History and physical examination, occupation [id number] Z02.1 Health Concerns Section Related Observation LastModified by Organization Detai ls LastModified Time None Recorded Concern Status LastModified by Organization Details LastModified Time None Recorded Advance Directives Directive None Recorded Payers Insurance Date Sequence Insurance Name Policy Number Policy Hearn Covered Member ID Hearn Member ID Guarantor Name 03/04/2024 OC-ESCREEN Marek Traylor [facility] Marek Traylor
== END 2025-02-01 12:24 | disposition home or self-care (01) ==
LOC: HO.LNP 12:23
PROVIDERS: Visit Provider Internal Medicine
DX: R31.9 Hematuria, unspecified (principal)
CPT/HCPCS: 81001